=== PATIENT | female | born 2000 | race American Indian/Alaskan Native ===

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

== ENCOUNTER 2019-03-25 21:40 | Emergency (ER) | payer MEDICAID ==
[2019-03-26 00:45] LABS: Basophils % (Auto) 0.4 % (0.0-1.8); Eosinophils # (Auto) 0.2 K/mm3 (0.0-0.4); Eosinophils % (Auto) 2.7 % (0.0-4.3); Hematocrit 40.5 % (30.3-42.9); Hemoglobin 13.3 gm/dl (10.1-14.3); Lymphocytes # (Auto) 2.1 K/mm3 (1.2-5.4); Lymphocytes % (Auto) 34.2 % (13.4-35.0); Mean Corpuscular HGB Conc 33 % (30-34); Mean Corpuscular Volume 88 fl (79-97); Monocytes # (Auto) 0.5 K/mm3 (0.0-0.8); Monocytes % (Auto) 7.6 % (0.0-7.3); Platelet Count 198 K/mm3 (140-440); Red Blood Count 4.61 M/mm3 (3.65-5.03); Red Cell Distribution Width 12.7 % (13.2-15.2)
[2019-03-26 01:02] LABS: Alanine Aminotransferase 9 units/L (7-56); Albumin 4.7 g/dL (3.9-5); BUN/Creatinine Ratio 12; Blood Urea Nitrogen 7 mg/dL (7-17); Calcium 9.8 mg/dL (8.4-10.2); Hemolysis Index 18
--- NOTE | 2019-03-26 01:50 | Emergency Department Report ---
ED Female HPI - General Chief complaint: Abdominal Pain Stated complaint: VAGINAL BLEEDING Time Seen by Provider: 03/26/19 01:45 Source: patient Mode of arrival: Ambulatory Limitations: No Limitations - History of Present Illness Initial comments: Patient is a 18 Emergency female who presents for abdominal pain vaginal bleeding is 8 weeks patient is A0, states vaginal bleeding and cramping x 3 days , LMP: 01/29/2019 , there is no n/v no fever or or chills, vaginal bleeding is light but consistent for last 3 days. MD Complaint: vaginal bleeding Onset/Timin -: days(s) Severity: moderate Severity scale (0 -10): 3 Quality: cramping Consistency: constant Improves with: none Worsens with: none Are you Now?: Yes Last Menstrual Period: 01/29/19 EDC: 11/05/19 Associated Symptoms: vaginal bleeding - Related Data Sexually active: Yes : 1 Para: 0 A: 0 Previous Rx's Medication Instructions Recorded Last Taken Type Acetaminophen [Acetaminophen TAB] 650 mg PO Q6HR PRN #30 tablet 03/26/19 Unknown Rx Ondansetron [Zofran Odt] 4 mg PO Q8HR #20 tab.rapdis 03/26/19 Unknown Rx cephALEXin [Keflex] 500 mg PO Q12HR 10 Days #20 cap 03/26/19 Unknown Rx Allergies Allergy/AdvReac Type Severity Reaction Status Date / Time No Known Allergies Allergy Verified 11/19/16 16:41 ED Review of Systems ROS: Stated complaint: VAGINAL BLEEDING Other details as noted in HPI Constitutional: denies: chills, fever Eyes: denies: eye pain, eye discharge, vision change ENT: denies: ear pain, throat pain Respiratory: denies: cough, shortness of breath, wheezing Cardiovascular: denies: chest pain, palpitations Endocrine: no symptoms reported Gastrointestinal: abdominal pain. denies: nausea, vomiting, diarrhea, constipation, hematemesis, melena, other Genitourinary: denies: urgency, dysuria, discharge Musculoskeletal: denies: back pain, joint swelling, arthralgia Skin: denies: rash, lesions Neurological: denies: headache, weakness, paresthesias Psychiatric: denies: anxiety, depression Hematological/Lymphatic: denies: easy bleeding, easy bruising ED Past Medical Hx - Past Medical History Previous Medical History?: Yes Hx Psychiatric Treatment: Yes (anxiety attacks, depression) Hx Asthma: Yes - Surgical History Past Surgical History?: No - Social History Smoking Status: Never Smoker - Medications Home Medications: Home Medications Medication Instructions Recorded Confirmed Last Taken Type Acetaminophen [Acetaminophen TAB] 650 mg PO Q6HR PRN #30 tablet 03/26/19 Unknown Rx Ondansetron [Zofran Odt] 4 mg PO Q8HR #20 tab.rapdis 03/26/19 Unknown Rx cephALEXin [Keflex] 500 mg PO Q12HR 10 Days #20 cap 03/26/19 Unknown Rx ED Physical Exam - General Limitations: No Limitations General appearance: alert, in no apparent distress - Head Head exam: Present: atraumatic, normocephalic - Eye Eye exam: Present: normal appearance, PERRL, EOMI Pupils: Present: normal accommodation - ENT ENT exam: Present: mucous membranes moist - Neck Neck exam: Present: normal inspection - Respiratory Respiratory exam: Present: normal lung sounds bilaterally. Absent: respiratory distress - Cardiovascular Cardiovascular Exam: Present: regular rate, normal rhythm, normal heart sounds. Absent: systolic murmur, diastolic murmur, rubs, gallop - GI/Abdominal GI/Abdominal exam: Present: soft, tenderness (superopubic ), normal bowel sounds. Absent: distended, guarding, rebound, rigid, bruit, hernia - Rectal Rectal exam: Present: deferred - Extremities Exam Extremities exam: Present: normal inspection - Back Exam Back exam: Present: normal inspection, full ROM. Absent: tenderness, CVA tenderness (R), CVA tenderness (L), muscle spasm, paraspinal tenderness, vertebral tenderness, rash noted - Neurological Exam Neurological exam: Present: alert, oriented X3 - Psychiatric Psychiatric exam: Present: normal affect, normal mood - Skin Skin exam: Present: warm, dry, intact, normal color. Absent: rash ED Course Vital Signs 03/25/19 03/26/19 21:44 00:01 Temperature 98.6 F 98.6 F Pulse Rate 99 H 108 H Respiratory 18 18 Rate Blood Pressure 116/92 116/92 O2 Sat by Pulse 98 99 Oximetry ED Medical Decision Making - Lab Data Result diagrams: 03/26/19 00:16 03/26/19 00:16 Labs 03/26/19 03/26/19 03/26/19 00:16 00:16 00:16 WBC 6.3 RBC 4.61 Hgb 13.3 Hct 40.5 MCV 88 MCH 29 MCHC 33 RDW 12.7 L Plt Count 198 Lymph % (Auto) 34.2 [place] % (Auto) 7.6 H Eos % (Auto) 2.7 Baso % (Auto) 0.4 Lymph # 2.1 [place] # 0.5 Eos # 0.2 Baso # 0.0 Seg Neutrophils % 55.1 Seg Neutrophils # 3.4 Sodium Potassium Chloride Carbon Dioxide Anion Gap BUN Creatinine Estimated GFR BUN/Creatinine Ratio Glucose Calcium Total Bilirubin AST ALT Alkaline Phosphatase Total Protein Albumin Albumin/Globulin Ratio Lipase HCG, Quant 9586 H Urine Color Urine Turbidity Urine pH Ur Specific [place] Urine Protein Urine Glucose (UA) Urine Ketones Urine Blood Urine Nitrite Urine Bilirubin Urine Urobilinogen Ur Leukocyte Esterase Urine WBC (Auto) Urine RBC (Auto) U Epithel Cells (Auto) Urine Bacteria (Auto) Calcium Oxalate Crystal Urine Mucus Blood Type O POSITIVE 03/26/19 03/26/19 00:16 02:30 WBC RBC Hgb Hct MCV MCH MCHC RDW Plt Count Lymph % (Auto) [place] % (Auto) Eos % (Auto) Baso % (Auto) Lymph # [place] # Eos # Baso # Seg Neutrophils % Seg Neutrophils # Sodium 138 Potassium 3.5 L Chloride 103.6 Carbon Dioxide 20 L Anion Gap 18 BUN 7 Creatinine 0.6 L Estimated GFR > 60 BUN/Creatinine Ratio 12 Glucose 108 H Calcium 9.8 Total Bilirubin 0.20 AST 15 ALT 9 Alkaline Phosphatase 62 Total Protein 7.3 Albumin 4.7 Albumin/Globulin Ratio 1.8 Lipase 25 HCG, Quant Urine Color Yellow Urine Turbidity Slightly-cloudy Urine pH 5.0 Ur Specific [place] 1.024 Urine Protein 100 mg/dl Urine Glucose (UA) Neg Urine Ketones Neg Urine Blood Lg Urine Nitrite Neg Urine Bilirubin Neg Urine Urobilinogen < 2.0 Ur Leukocyte Esterase Sm Urine WBC (Auto) 11.0 H Urine RBC (Auto) 12.0 U Epithel Cells (Auto) 9.0 Urine Bacteria (Auto) 1+ Calcium Oxalate Crystal 1+ Urine Mucus 3+ Blood Type - Radiology Data Radiology results: report reviewed, image reviewed Patient: LESLIE PETTIT MR#: [id number] : 2000 Acct:[id number] Age/Sex: 18 / F ADM Date: 03/25/19 Loc: ED Attending Dr: Ordering Physician: VICENTE PEARSON MD Date of Service: 03/26/19 Procedure(s): US OB <= 14 weeks fetus Accession Number(s): [id number] cc: VICENTE PEARSON MD PROCEDURE: US OB <= 14 WEEKS FETUS TECHNIQUE: Real-time transabdominal and transvaginal sonography of the uterus, placenta, amniotic fluid, adnexa, and fetus was performed with image documentation. Measurements were obtained to determine age/size. M-mode Doppler was used to document heartbeat. ADDITIONAL GESTATION: None. HISTORY: vaginal bleeding 8 wks COMPARISONS: None . FINDINGS: Uterus size is 6.5 x 3.7 x 5 cm. Within the uterus there is a gestational sac with a measurement of approximately 10 mm. A yolk sac is identified on this study. A pole is not seen. The gestational age is approximately 5 weeks. Both ovaries have a normal size. There is a small 17 mm cyst on the left ovary. No fluid in the lower pelvis. The findings are most consistent with an early intrauterine . failure is not excluded on the basis of this single study. Follow-up evaluation may be appropriate with a repeat ultrasound in approximately 14 days. IMPRESSION: Gestational sac is identified within the uterus. No pole is identified at this time. The gestational age is approximately 5 weeks. Recheck study in approximately 14 days may be of benefit. This document is electronically signed by Capo Murdock DO., March 26 2019 02:47:36 AM ET Transcribed By: [facility] Dictated By: CAPO MURDOCK MD Electronically Authenticated By: CAPO MURDOCK MD Signed Date/Time: 03/26/19 0249 DD/ 0235 TD/TT: 03/26/19 0236 Critical care attestation.: If time is entered above; I have spent that time in minutes in the direct care of this critically ill patient, excluding procedure time. ED Disposition Clinical Impression: Genitourinary tract infection during in first trimester, Threatened miscarriage Abdominal pain during Qualifiers: Trimester: first trimester Qualified Code(s): O26.891 - Other specified related conditions, first trimester; R10.9 - Unspecified abdominal pain Disposition: DC-01 TO HOME OR SELFCARE Is pt being admited?: No Does the pt Need Aspirin: No Condition: Stable Instructions: Threatened Miscarriage (ED), Urinary Tract Infection in Women (ED) Prescriptions: Acetaminophen [Acetaminophen TAB] 650 mg PO Q6HR PRN #30 tablet PRN Reason: Pain cephALEXin [Keflex] 500 mg PO Q12HR 10 Days #20 cap Ondansetron [Zofran Odt] 4 mg PO Q8HR #20 tab.rapdis Forms: Work/School Release Form(ED) Time of Disposition: 03:40
--- NOTE | 2019-03-26 02:49 | Ultrasound Report ---
PROCEDURE: US OB <= 14 WEEKS FETUS TECHNIQUE: Real-time transabdominal and transvaginal sonography of the uterus, placenta, amniotic fl uid, adnexa, and fetus was performed with image documentation. Measurements were obtained to determin e age/size. M-mode Doppler was used to document heartbeat. ADDITIONAL GESTATION: None. HISTORY: vaginal bleeding 8 wks COMPARISONS: None . FINDINGS: Uterus size is 6.5 x 3.7 x 5 cm. Within the uterus there is a gestational sac with a measurement of a pproximately 10 mm. A yolk sac is identified on this study. A pole is not seen. The gestational age is approximately 5 weeks. Both ovaries have a normal size. There is a small 17 mm cyst on the left ovary. No fluid in the lower pelvis. The findings are most consistent with an early intrauterine . failure is not exclu ded on the basis of this single study. Follow-up evaluation may be appropriate with a repeat ultrasou nd in approximately 14 days. IMPRESSION: Gestational sac is identified within the uterus. No pole is identified at this time . The gestational age is approximately 5 weeks. Recheck study in approximately 14 days may be of bene fit. This document is electronically signed by Lindsay Murdock DO., March 26 2019 02:47:36 AM ET
--- NOTE | 2019-03-26 02:59 | Ultrasound Report ---
PROCEDURE: US OB TRANSVAGINAL TECHNIQUE: Real-time transabdominal and transvaginal sonography of the uterus, placenta, amniotic fl uid, adnexa, and fetus was performed with image documentation. Measurements were obtained to determin e age/size. M-mode Doppler was used to document heartbeat. ADDITIONAL GESTATION: None. HISTORY: vaginal bleeding 8 wks COMPARISONS: None . FINDINGS: Uterus size is 6.5 x 3.7 x 5 cm. Within the uterus there is a gestational sac with a measurement of a pproximately 10 mm. A yolk sac is identified on this study. A pole is not seen. The gestational age is approximately 5 weeks. Both ovaries have a normal size. There is a small 17 mm cyst on the left ovary. No fluid in the lower pelvis. The findings are most consistent with an early intrauterine . failure is not exclu ded on the basis of this single study. Follow-up evaluation may be appropriate with a repeat ultrasou nd in approximately 14 days. IMPRESSION: Gestational sac is identified within the uterus. No pole is identified at this time . The gestational age is approximately 5 weeks. Recheck study in approximately 14 days may be of bene fit. This document is electronically signed by Lindsay Murdock DO., March 26 2019 02:57:13 AM ET
[2019-03-26 03:14] LABS: Bacteria,Urine 1+ /HPF (Negative); Bilirubin,Urine NEG (Negative); Blood,Urine LG (Negative); Calcium Oxalate Crystals,Urine 1+; Color,Urine Yellow (Yellow); Mucus,Urine 3+ /HPF; Urobilinogen,Urine < 2.0 mg/dL (<2.0)
[2019-03-26 03:57] VITALS: BP 96/61
== END 2019-03-26 03:55 | disposition home or self-care (01) ==
LOC: ED 21:40
DX: O23.41 Unspecified infection of urinary tract in pregnancy, first trimester (principal); O20.0 Threatened abortion; O99.341 Other mental disorders complicating pregnancy, first trimester; F32.9 Major depressive disorder, single episode, unspecified; F41.9 Anxiety disorder, unspecified; O99.511 Diseases of the respiratory system complicating pregnancy, first trimester; J45.909 Unspecified asthma, uncomplicated; Z79.899 Other long term (current) drug therapy; Z3A.01 Less than 8 weeks gestation of pregnancy
CPT/HCPCS: 36415; 76801; 76817; 80053; 81001; 83690; 84702; 85025; 86900; 86901; 87086; 99284

== ENCOUNTER 2019-03-26 22:36 | Emergency (ER) | payer MEDICAID ==
[2019-03-26] MEDS ORDERED: ZOFRAN ODT ONE (23:48)
[2019-03-26] MEDS ORDERED: ZOFRAN ODT PO ONE (23:50)
[2019-03-27 00:18] LABS: Basophils # (Auto) 0.1 K/mm3 (0.0-0.1); Basophils % (Auto) 1.2 % (0.0-1.8); Eosinophils # (Auto) 0.2 K/mm3 (0.0-0.4); Eosinophils % (Auto) 1.8 % (0.0-4.3); Hemoglobin 13.4 gm/dl (10.1-14.3); Lymphocytes # (Auto) 1.8 K/mm3 (1.2-5.4); Lymphocytes % (Auto) 20.4 % (13.4-35.0); Mean Corpuscular HGB Conc 34 % (30-34); Mean Corpuscular Volume 87 fl (79-97); Monocytes # (Auto) 0.5 K/mm3 (0.0-0.8); Monocytes % (Auto) 6.3 % (0.0-7.3); Platelet Count 222 K/mm3 (140-440); Red Cell Distribution Width 12.7 % (13.2-15.2)
[2019-03-27 00:44] LABS: Bilirubin,Urine NEG (Negative); Blood,Urine LG (Negative); Color,Urine Yellow (Yellow); Mucus,Urine FEW /HPF; Urobilinogen,Urine < 2.0 mg/dL (<2.0)
[2019-03-27] MEDS ORDERED: BENADRYL IV ONE (05:29)
[2019-03-27] MEDS ORDERED: NACL 0.9% 1000 ML 1,000 ML IV ONE (05:29)
[2019-03-27] MEDS ORDERED: BENTYL IM ONE (05:29)
[2019-03-27] MEDS ORDERED: REGLAN IV ONE (05:29)
--- NOTE | 2019-03-27 07:42 | Emergency Department Report ---
ED Dysuria HPI - HPI Chief Complaint: Vaginal Bleeding Stated Complaint: 6WKS /BLEEDING/ABD PAIN Time Seen by Provider: 03/27/19 07:09 Duration: 3 Days Severity: Mild Symptoms: Dysuria: No, Frequency: No, Suprapubic Pain: No, Flank Pain: No, Fever: No, Hematuria: No, Abdominal Pain: No, Previous UTI's: No Other History: Here yesterday for same. preg with bleeding. told to come back if bleeding got worse. VSS. NAD. G1 LMP 4-29 ED Review of Systems ROS: Stated complaint: 6WKS /BLEEDING/ABD PAIN Other details as noted in HPI Comment: All other systems reviewed and negative ED Past Medical Hx - Past Medical History Previous Medical History?: Yes Hx Psychiatric Treatment: Yes (anxiety attacks, depression) Hx Asthma: Yes - Surgical History Past Surgical History?: No - Social History Smoking Status: Never Smoker Substance Use Type: Marijuana - Medications Home Medications: Home Medications Medication Instructions Recorded Confirmed Last Taken Type Acetaminophen [Acetaminophen TAB] 650 mg PO Q6HR PRN #30 tablet 03/26/19 Unknown Rx Ondansetron [Zofran Odt] 4 mg PO Q8HR #20 tab.rapdis 03/26/19 Unknown Rx cephALEXin [Keflex] 500 mg PO Q12HR 10 Days #20 cap 03/26/19 Unknown Rx Ibuprofen [Motrin] 800 mg PO Q8HR PRN #25 tablet 03/27/19 Unknown Rx Dysuria Exam - Exam General: Vital signs noted. No distress. Alert and acting appropriately. Exam: Yes Moist Mucous Membranes, No CVA Tenderness, No Abdominal Tenderness, No Rigidity or Guarding Labs: Lab Results 03/26/19 03/26/19 03/26/19 Range/Units 23:54 23:54 23:54 WBC 8.6 (4.5-11.0) K/mm3 RBC 4.60 (3.65-5.03) M/mm3 Hgb 13.4 (10.1-14.3) gm/dl Hct 40.0 (30.3-42.9) % MCV 87 (79-97) fl MCH 29 (28-32) pg MCHC 34 (30-34) % RDW 12.7 L (13.2-15.2) % Plt Count 222 (140-440) K/mm3 Lymph % (Auto) 20.4 (13.4-35.0) % [place] % (Auto) 6.3 (0.0-7.3) % Eos % (Auto) 1.8 (0.0-4.3) % Baso % (Auto) 1.2 (0.0-1.8) % Lymph # 1.8 (1.2-5.4) K/mm3 [place] # 0.5 (0.0-0.8) K/mm3 Eos # 0.2 (0.0-0.4) K/mm3 Baso # 0.1 (0.0-0.1) K/mm3 Seg Neutrophils % 70.3 H (40.0-70.0) % Seg Neutrophils # 6.1 (1.8-7.7) K/mm3 HCG, Quant 9168 H (0-4) mIU/mL Urine Color (Yellow) Urine Turbidity (Clear) Urine pH (5.0-7.0) Ur Specific [place] (1.003-1.030) Urine Protein (Negative) mg/dL Urine Glucose (UA) (Negative) mg/dL Urine Ketones (Negative) mg/dL Urine Blood (Negative) Urine Nitrite (Negative) Urine Bilirubin (Negative) Urine Urobilinogen (<2.0) mg/dL Ur Leukocyte Esterase (Negative) Urine WBC (Auto) (0.0-6.0) /HPF Urine RBC (Auto) (0.0-6.0) /HPF U Epithel Cells (Auto) (0-13.0) /HPF Urine WBC Clumps /HPF Urine Mucus /HPF Urine Yeast (Budding) /HPF Blood Type O POSITIVE 03/27/19 Range/Units 00:12 WBC (4.5-11.0) K/mm3 RBC (3.65-5.03) M/mm3 Hgb (10.1-14.3) gm/dl Hct (30.3-42.9) % MCV (79-97) fl MCH (28-32) pg MCHC (30-34) % RDW (13.2-15.2) % Plt Count (140-440) K/mm3 Lymph % (Auto) (13.4-35.0) % [place] % (Auto) (0.0-7.3) % Eos % (Auto) (0.0-4.3) % Baso % (Auto) (0.0-1.8) % Lymph # (1.2-5.4) K/mm3 [place] # (0.0-0.8) K/mm3 Eos # (0.0-0.4) K/mm3 Baso # (0.0-0.1) K/mm3 Seg Neutrophils % (40.0-70.0) % Seg Neutrophils # (1.8-7.7) K/mm3 HCG, Quant (0-4) mIU/mL Urine Color Yellow (Yellow) Urine Turbidity Cloudy (Clear) Urine pH 7.0 (5.0-7.0) Ur Specific [place] 1.018 (1.003-1.030) Urine Protein 30 mg/dl (Negative) mg/dL Urine Glucose (UA) Neg (Negative) mg/dL Urine Ketones 20 (Negative) mg/dL Urine Blood Lg (Negative) Urine Nitrite Neg (Negative) Urine Bilirubin Neg (Negative) Urine Urobilinogen < 2.0 (<2.0) mg/dL Ur Leukocyte Esterase Neg (Negative) Urine WBC (Auto) 6.0 (0.0-6.0) /HPF Urine RBC (Auto) 78.0 (0.0-6.0) /HPF U Epithel Cells (Auto) 1.0 (0-13.0) /HPF Urine WBC Clumps 2+ /HPF Urine Mucus Few /HPF Urine Yeast (Budding) 3+ /HPF Blood Type ED Course Vital Signs 03/26/19 22:38 Temperature 98.4 F Pulse Rate 105 H Respiratory 18 Rate Blood Pressure 131/83 O2 Sat by Pulse 100 Oximetry ED Medical Decision Making - Lab Data Result diagrams: 03/26/19 23:54 - Radiology Data Radiology results: report reviewed, image reviewed - Medical Decision Making Lab Results 03/26/19 03/26/19 03/26/19 Range/Units 23:54 23:54 23:54 WBC 8.6 (4.5-11.0) K/mm3 RBC 4.60 (3.65-5.03) M/mm3 Hgb 13.4 (10.1-14.3) gm/dl Hct 40.0 (30.3-42.9) % MCV 87 (79-97) fl MCH 29 (28-32) pg MCHC 34 (30-34) % RDW 12.7 L (13.2-15.2) % Plt Count 222 (140-440) K/mm3 Lymph % (Auto) 20.4 (13.4-35.0) % [place] % (Auto) 6.3 (0.0-7.3) % Eos % (Auto) 1.8 (0.0-4.3) % Baso % (Auto) 1.2 (0.0-1.8) % Lymph # 1.8 (1.2-5.4) K/mm3 [place] # 0.5 (0.0-0.8) K/mm3 Eos # 0.2 (0.0-0.4) K/mm3 Baso # 0.1 (0.0-0.1) K/mm3 Seg Neutrophils % 70.3 H (40.0-70.0) % Seg Neutrophils # 6.1 (1.8-7.7) K/mm3 HCG, Quant 9168 H (0-4) mIU/mL Urine Color (Yellow) Urine Turbidity (Clear) Urine pH (5.0-7.0) Ur Specific [place] (1.003-1.030) Urine Protein (Negative) mg/dL Urine Glucose (UA) (Negative) mg/dL Urine Ketones (Negative) mg/dL Urine Blood (Negative) Urine Nitrite (Negative) Urine Bilirubin (Negative) Urine Urobilinogen (<2.0) mg/dL Ur Leukocyte Esterase (Negative) Urine WBC (Auto) (0.0-6.0) /HPF Urine RBC (Auto) (0.0-6.0) /HPF U Epithel Cells (Auto) (0-13.0) /HPF Urine WBC Clumps /HPF Urine Mucus /HPF Urine Yeast (Budding) /HPF Blood Type O POSITIVE 03/27/19 03/27/19 Range/Units 00:12 06:33 WBC (4.5-11.0) K/mm3 RBC (3.65-5.03) M/mm3 Hgb (10.1-14.3) gm/dl Hct (30.3-42.9) % MCV (79-97) fl MCH (28-32) pg MCHC (30-34) % RDW (13.2-15.2) % Plt Count (140-440) K/mm3 Lymph % (Auto) (13.4-35.0) % [place] % (Auto) (0.0-7.3) % Eos % (Auto) (0.0-4.3) % Baso % (Auto) (0.0-1.8) % Lymph # (1.2-5.4) K/mm3 [place] # (0.0-0.8) K/mm3 Eos # (0.0-0.4) K/mm3 Baso # (0.0-0.1) K/mm3 Seg Neutrophils % (40.0-70.0) % Seg Neutrophils # (1.8-7.7) K/mm3 HCG, Quant 5752 H (0-4) mIU/mL Urine Color Yellow (Yellow) Urine Turbidity Cloudy (Clear) Urine pH 7.0 (5.0-7.0) Ur Specific [place] 1.018 (1.003-1.030) Urine Protein 30 mg/dl (Negative) mg/dL Urine Glucose (UA) Neg (Negative) mg/dL Urine Ketones 20 (Negative) mg/dL Urine Blood Lg (Negative) Urine Nitrite Neg (Negative) Urine Bilirubin Neg (Negative) Urine Urobilinogen < 2.0 (<2.0) mg/dL Ur Leukocyte Esterase Neg (Negative) Urine WBC (Auto) 6.0 (0.0-6.0) /HPF Urine RBC (Auto) 78.0 (0.0-6.0) /HPF U Epithel Cells (Auto) 1.0 (0-13.0) /HPF Urine WBC Clumps 2+ /HPF Urine Mucus Few /HPF Urine Yeast (Budding) 3+ /HPF Blood Type Vital Signs 03/26/19 22:38 Temperature 98.4 F Pulse Rate 105 H Respiratory 18 Rate Blood Pressure 131/83 O2 Sat by Pulse 100 Oximetry labs noted as ordered in triage hcg trending down us noted o pos medicated for pain dc home with education and dc plan of care. referral to obgyn. Critical care attestation.: If time is entered above; I have spent that time in minutes in the direct care of this critically ill patient, excluding procedure time. ED Disposition Clinical Impression: Spontaneous Disposition: DC-01 TO HOME OR SELFCARE Is pt being admited?: No Does the pt Need Aspirin: No Condition: Stable Instructions: Spontaneous Miscarriage (ED) Additional Instructions: DIET TOLERATED MEDS ORDERED TODAY IN ER FOLLOW INSTRUCTIONS ON THE BOTTLE FOLLOW UP PCP WITHIN 48 HOURS TO ENSURE YOU ARE GETTING BETTER ACTIVITY TOLERATED MOTRIN OR TYLENOL FOR PAIN OR FEVER RETURN TO THE ER FOR WORSENING SYMPTOMS NOT RELIEVED BY YOUR MEDICATIONS. FOLLOW UP WITH OBGYN REFERRAL BELOW Prescriptions: Ibuprofen [Motrin] 800 mg PO Q8HR PRN #25 tablet PRN Reason: Pain , Severe (7-10) Referrals: ALBA PEREZ MD [Staff Physician] - 3-5 Days Time of Disposition: 09:04
--- NOTE | 2019-03-27 08:56 | Ultrasound Report ---
ULTRASOUND OB LESS THAN 14 WEEKS FETUS ULTRASOUND OB TRANSVAGINAL HISTORY: Abdominal pain, vaginal bleeding. TECHNIQUE: Transabdominal and transvaginal ultrasound images. FINDINGS: Compared to the exam performed 03/26/19. No intrauterine is identified on today's examination. The endometrium is slightly heterogeneous containing trace fluid and measures 9.1 mm in thickness. The uterus is anteverted and measures 7.5 x 3.8 x 4.9 cm. No uterine fibroid disease detected. The right ovary is unremarkable measuring 2.5 x 1.7 x 1.6 cm. The left ovary measures 2.6 x 2.1 x 1.9 cm and contains a 1.5 cm simple appearing cyst. No pelvic fluid collection. IMPRESSION: No intrauterine is identified on today's exam consistent with spontaneous . The endometrium is slightly complex but measures 9.1 mm. Left ovarian cyst.
[2019-03-27] MEDS ORDERED: ZOFRAN ODT PO ONE ×2 (09:05→10:21)
[2019-03-27] MEDS ORDERED: NORCO 5/325 PO ONE (09:05)
[2019-03-27 09:30] VITALS: BP 111/71
== END 2019-03-27 10:32 | disposition home or self-care (01) ==
LOC: ED 22:36
DX: O03.9 Complete or unspecified spontaneous abortion without complication (principal); O99.341 Other mental disorders complicating pregnancy, first trimester; O99.511 Diseases of the respiratory system complicating pregnancy, first trimester; F12.10 Cannabis abuse, uncomplicated; F41.8 Other specified anxiety disorders; Z3A.01 Less than 8 weeks gestation of pregnancy
CPT/HCPCS: 36415; 76801; 76817; 81001; 84702; 85025; 86900; 86901; 96372; 96374; 96375; 99284; J0500; J1200; J2765; J7030; Q0162

== ENCOUNTER 2019-10-15 08:47 | Emergency (ER) | payer SELFPAY ==
[2019-10-15 09:15] VITALS: BP 118/75
[2019-10-15] MEDS ORDERED: HYDROcodone/ACETAMINOPHEN 10-325MG TAB PO ONE (10:02)
--- NOTE | 2019-10-15 10:04 | XRay Report ---
RIGHT HAND, 4 VIEWS INDICATION / CLINICAL INFORMATION: HAND INJURY. Patient punched a wall COMPARISON: None available. FINDINGS: There is a minimally displaced fracture through the base/proximal portion of the fifth metacarpal. Th is does appear to be intra-articular. No additional fractures are identified. IMPRESSION: Mildly displaced intra-articular fracture involving the proximal portion of the fifth met acarpal Signer Name: Breann Castillo MD Signed: 10/15/2019 10:00 AM Workstation Name: [id number]
--- NOTE | 2019-10-15 10:05 | Emergency Department Report ---
ED Upper Extremity Inj HPI - General Chief Complaint: Extremity Injury, Upper Stated Complaint: HAND INJURY Time Seen by Provider: 10/15/19 09:55 Source: patient Mode of arrival: Ambulatory Limitations: No Limitations - History of Present Illness Initial Comments: This is a 19-year-old female nontoxic, well nourished in appearance, no acute signs of distress presents to the ED with c/o of right hand pain 1 day. Patient stated that she punched the wall yesterday. Patient denies any other trauma. Patient denies any numbness, tingling, fever, chills, nausea, vomiting, chest pain, shortness of breath, headache, stiff neck. Patient denies any joint swelling or joint redness. Patient has some decreased range of motion due to pain. Patient denies any allergies or significant past medical history. MD Complaint: Injury to:: right, hand -: days(s) (1) Other Extremity Injury: Hand: Right Other Injuries: none Severity scale (0 -10): 8 Improves With: immobilization Worsens With: movement of extremity Context: direct blow Associated Symptoms: denies other symptoms. denies: weakness, numbness, neck pain, suspects foreign body, nausea/vomiting, heard/felt popping sensat - Related Data Previous Rx's Medication Instructions Recorded Last Taken Type Acetaminophen [Acetaminophen TAB] 650 mg PO Q6HR PRN #30 tablet 03/26/19 Unknown Rx Ondansetron [Zofran Odt] 4 mg PO Q8HR #20 tab.rapdis 03/26/19 Unknown Rx cephALEXin [Keflex] 500 mg PO Q12HR 10 Days #20 cap 03/26/19 Unknown Rx Ibuprofen [Motrin] 800 mg PO Q8HR PRN #25 tablet 03/27/19 Unknown Rx Acetaminophen/Codeine [Tylenol 1 tab PO Q6H PRN #12 tab 10/15/19 Unknown Rx /Codeine # 3 tab] Allergies Allergy/AdvReac Type Severity Reaction Status Date / Time No Known Allergies Allergy Verified 11/19/16 16:41 ED Review of Systems ROS: Stated complaint: HAND INJURY Other details as noted in HPI Constitutional: denies: chills, fever Eyes: denies: eye pain, eye discharge, vision change ENT: denies: ear pain, throat pain Respiratory: denies: cough, shortness of breath, wheezing Cardiovascular: denies: chest pain, palpitations Endocrine: no symptoms reported Gastrointestinal: denies: abdominal pain, nausea, diarrhea Genitourinary: denies: urgency, dysuria, discharge Musculoskeletal: denies: back pain, joint swelling, arthralgia Skin: denies: rash, lesions Neurological: denies: headache, weakness, paresthesias Psychiatric: denies: anxiety, depression Hematological/Lymphatic: denies: easy bleeding, easy bruising ED Past Medical Hx - Past Medical History Previous Medical History?: Yes Hx Psychiatric Treatment: Yes (anxiety attacks, depression) Hx Asthma: Yes - Surgical History Past Surgical History?: No - Social History Smoking Status: Never Smoker Substance Use Type: Marijuana - Medications Home Medications: Home Medications Medication Instructions Recorded Confirmed Last Taken Type Acetaminophen [Acetaminophen TAB] 650 mg PO Q6HR PRN #30 tablet 03/26/19 Unknown Rx Ondansetron [Zofran Odt] 4 mg PO Q8HR #20 tab.rapdis 03/26/19 Unknown Rx cephALEXin [Keflex] 500 mg PO Q12HR 10 Days #20 cap 03/26/19 Unknown Rx Ibuprofen [Motrin] 800 mg PO Q8HR PRN #25 tablet 03/27/19 Unknown Rx Acetaminophen/Codeine [Tylenol 1 tab PO Q6H PRN #12 tab 10/15/19 Unknown Rx /Codeine # 3 tab] ED Physical Exam - General Limitations: No Limitations General appearance: alert, in no apparent distress - Head Head exam: Present: atraumatic, normocephalic - Neck Neck exam: Present: normal inspection, full ROM. Absent: tenderness, meningismus, lymphadenopathy - Extremities Exam Extremities exam: Present: normal inspection, full ROM, tenderness, normal capillary refill. Absent: joint swelling - Expanded Upper Extremity Exam Right General: Present: normal inspection Shoulder Exam: Present: normal inspection, full ROM. Absent: tenderness, swelling Upper Arm exam: Present: normal inspection, full ROM. Absent: tenderness, swelling Elbow exam: Present: normal inspection, full ROM. Absent: tenderness, swelling Forearm Wrist exam: Present: normal inspection, full ROM. Absent: tenderness, swelling Hand Wrist exam: Present: normal inspection, full ROM, tenderness, swelling, ecchymosis. Absent: abrasion, laceration, deformity, crepidus, dislocation, erythema, amputation, nail avulsion, subungual hematoma Vascular: Present: vascular compromise, normal capillary refill - Back Exam Back exam: Present: normal inspection, full ROM - Neurological Exam Neurological exam: Present: alert, oriented X3, normal gait - Psychiatric Psychiatric exam: Present: normal affect, normal mood - Skin Skin exam: Present: warm, dry, intact, normal color. Absent: rash ED Course Vital Signs 10/15/19 09:12 Temperature 98.2 F Pulse Rate 76 Respiratory 16 Rate Blood Pressure 118/75 [Left] O2 Sat by Pulse 99 Oximetry - Reevaluation(s) Reevaluation #1: 10/15/19 10:04 Patient is speaking in full sentences with no signs of distress noted. ED Medical Decision Making - Medical Decision Making This is a 19-year-old female that presents with right boxer splint. Patient is stable and was examined by me. I referred patient to an orthopedic doctor for further evaluation for possible MRI. X-ray has been obtained and dictated by the radiologist. Patient is notified of the x-ray report with noted by the patient. Patient does have normal gait with no tenderness and no joint swelling. No ecchymosis. no joint redness or swelling. Not warm to touch. No signs of cellulites present. Patient received a boxer ulnar gutter splint and sling. Post splint assessment: neurovasular intact; normal cap refill <2 second; normal sensation; denies decreaed sensation; normal ROM of digits. Patient was instructed to RICE therapy. Patient received [place] for pain and stated that family member will drive patient home after discharge due to possible drowsiness. Patient is discharged with Motrin. At time of discharge, the patient does not seem toxic or ill in appearance. No acute signs of distress noted. Patient agrees to discharge treatment plan of care. No further questions noted by the patient. Critical care attestation.: If time is entered above; I have spent that time in minutes in the direct care of this critically ill patient, excluding procedure time. ED Disposition Clinical Impression: Right hand fracture Qualifiers: Encounter type: initial encounter Fracture type: closed Qualified Code(s): S62.91XA - Unspecified fracture of right wrist and hand, initial encounter for closed fracture Disposition: - TO HOME OR SELFCARE Is pt being admited?: No Does the pt Need Aspirin: No Condition: Stable Instructions: Hand Fracture (ED), RICE Therapy (ED), Splint Care (ED), Acetaminophen/Codeine (By mouth) Additional Instructions: Follow-up with a orthopedic doctor in 3-5 days or if symptoms worsen and continue return to emergency room as soon as possible. Do not operate any machinery while taking Tylenol with codeine as this may cause drowsiness. Prescriptions: Acetaminophen/Codeine [Tylenol /Codeine # 3 tab] 1 tab PO Q6H PRN #12 tab PRN Reason: Pain , Severe (7-10) Referrals: PRIMARY CAREMD [Primary Care Provider] - 3-5 Days VERÓNICA YEUNG MD [Staff Physician] - 3-5 Days [facility] [Outside] - 3-5 Days Forms: Work/School Release Form(ED)
== END 2019-10-15 12:03 | disposition home or self-care (01) ==
LOC: ED 08:47
DX: S62.91XA Unspecified fracture of right hand, initial encounter for closed fracture (principal); F32.9 Major depressive disorder, single episode, unspecified; F41.9 Anxiety disorder, unspecified; J45.909 Unspecified asthma, uncomplicated; F12.10 Cannabis abuse, uncomplicated; W22.01XA Walked into wall, initial encounter; Y93.89 Activity, other specified; Y92.89 Other specified places as the place of occurrence of the external cause; Y99.8 Other external cause status

== ENCOUNTER 2019-10-31 21:36 | Emergency (ER) | payer SELFPAY ==
[2019-10-31 22:10] VITALS: BP 128/83
[2019-11-01 00:07] LABS: Hematocrit 43.2 % (30.3-42.9); Hemoglobin 14.3 gm/dl (10.1-14.3); Mean Corpuscular HGB Conc 33 % (30-34); Mean Corpuscular Volume 85 fl (79-97); Platelet Count 269 K/mm3 (140-440); Red Blood Count 5.07 M/mm3 (3.65-5.03); Red Cell Distribution Width 12.6 % (13.2-15.2)
[2019-11-01 00:34] LABS: Alanine Aminotransferase 10 units/L (7-56); Albumin 5.4 g/dL (3.9-5); BUN/Creatinine Ratio 29; Blood Urea Nitrogen 20 mg/dL (7-17); Calcium 10.8 mg/dL (8.4-10.2); Hemolysis Index 4
[2019-11-01] MEDS ORDERED: SODIUM CHLORIDE 0.9% 1000 ML 1,000 ML IV ONE (01:20)
[2019-11-01] MEDS ORDERED: ONDANSETRON 4 MG/2 ML INJ IV ONE (01:20)
--- NOTE | 2019-11-01 01:55 | Emergency Department Report ---
ED N/V/D HPI - General Chief complaint: Nausea/Vomiting/Diarrhea Stated complaint: CHEST PAIN, VOMITTING Time Seen by Provider: 11/01/19 01:18 Source: patient Mode of arrival: Ambulatory Limitations: No Limitations - History of Present Illness Initial comments: Ms. Subramanian is a 19 y/o aaf with hx of anxiety, who presents for n/v and epigastric burning decribed as heart burn x 3 days. pt denies diarrhea, no fever, or chills. Symptoms are exacerbated by eating, symptoms are relived by rest and po liquids. Last N/V 4 hrs ago, last po intake was now, water. Abd cramping is rated at 2/10 managable at this time. MD complaint: nausea, vomiting Onset/Timin -: days(s) Description of Vomiting: food contents Description of Diarrhea: other (none) Associated Abdominal Pain: Yes (epigastric burning ) Location: epigastric Radiation: none Severity: moderate Pain Scale: 4 Quality: cramping, aching Consistency: intermittent Improves with: rest Worsens with: eating Associated Symptoms: chest pain (epigastric ), nausea/vomiting. denies: fever/chills, shortness of breath - Related Data Previous Rx's Medication Instructions Recorded Last Taken Type Acetaminophen [Acetaminophen TAB] 650 mg PO Q6HR PRN #30 tablet 03/26/19 Unknown Rx Ondansetron [Zofran Odt] 4 mg PO Q8HR #20 tab.rapdis 03/26/19 Unknown Rx cephALEXin [Keflex] 500 mg PO Q12HR 10 Days #20 cap 03/26/19 Unknown Rx Ibuprofen [Motrin] 800 mg PO Q8HR PRN #25 tablet 03/27/19 Unknown Rx Acetaminophen/Codeine [Tylenol 1 tab PO Q6H PRN #12 tab 10/15/19 Unknown Rx /Codeine # 3 tab] Ibuprofen [Motrin 600 MG tab] 600 mg PO Q8H PRN #30 tab 11/01/19 Unknown Rx Nitrofurantoin Sutter/M-Cryst 100 mg PO BID 7 Days #14 capsule 11/01/19 Unknown Rx [Macrobid CAP] Ondansetron [Zofran Odt] 4 mg PO Q8HR #12 tab.rapdis 11/01/19 Unknown Rx Allergies Allergy/AdvReac Type Severity Reaction Status Date / Time No Known Allergies Allergy Verified 11/19/16 16:41 ED Review of Systems ROS: Stated complaint: CHEST PAIN, VOMITTING Other details as noted in HPI Constitutional: denies: chills, fever Eyes: denies: eye pain, eye discharge, vision change ENT: denies: ear pain, throat pain Respiratory: denies: cough, shortness of breath, wheezing Cardiovascular: chest pain (epigastric ) Endocrine: no symptoms reported Gastrointestinal: abdominal pain (epigastric ), nausea, vomiting. denies: diarrhea, constipation, melena Genitourinary: denies: urgency, dysuria, discharge Musculoskeletal: denies: back pain, joint swelling, arthralgia Skin: denies: rash, lesions Neurological: denies: headache, weakness, paresthesias Psychiatric: denies: anxiety, depression Hematological/Lymphatic: denies: easy bleeding, easy bruising ED Past Medical Hx - Past Medical History Hx Psychiatric Treatment: Yes (anxiety attacks, depression) Hx Asthma: Yes - Surgical History Past Surgical History?: No - Social History Smoking Status: Never Smoker Substance Use Type: Marijuana - Medications Home Medications: Home Medications Medication Instructions Recorded Confirmed Last Taken Type Acetaminophen [Acetaminophen TAB] 650 mg PO Q6HR PRN #30 tablet 03/26/19 Unknown Rx Ondansetron [Zofran Odt] 4 mg PO Q8HR #20 tab.rapdis 03/26/19 Unknown Rx cephALEXin [Keflex] 500 mg PO Q12HR 10 Days #20 cap 03/26/19 Unknown Rx Ibuprofen [Motrin] 800 mg PO Q8HR PRN #25 tablet 03/27/19 Unknown Rx Acetaminophen/Codeine [Tylenol 1 tab PO Q6H PRN #12 tab 10/15/19 Unknown Rx /Codeine # 3 tab] Ibuprofen [Motrin 600 MG tab] 600 mg PO Q8H PRN #30 tab 11/01/19 Unknown Rx Nitrofurantoin Sutter/M-Cryst 100 mg PO BID 7 Days #14 capsule 11/01/19 Unknown Rx [Macrobid CAP] Ondansetron [Zofran Odt] 4 mg PO Q8HR #12 tab.rapdis 11/01/19 Unknown Rx ED Physical Exam - General Limitations: No Limitations General appearance: alert, in no apparent distress - Head Head exam: Present: normocephalic - Eye Eye exam: Present: normal appearance, EOMI Pupils: Present: normal accommodation - ENT ENT exam: Present: mucous membranes moist - Neck Neck exam: Present: normal inspection, full ROM. Absent: tenderness - Respiratory Respiratory exam: Present: normal lung sounds bilaterally. Absent: respiratory distress, wheezes, stridor, chest wall tenderness - Cardiovascular Cardiovascular Exam: Present: regular rate, normal rhythm, normal heart sounds. Absent: systolic murmur, diastolic murmur, rubs, gallop - GI/Abdominal GI/Abdominal exam: Present: soft, normal bowel sounds. Absent: distended, tenderness, guarding, rebound, rigid, bruit, hernia - Rectal Rectal exam: Present: deferred - Extremities Exam Extremities exam: Present: normal inspection, full ROM. Absent: tenderness - Back Exam Back exam: Present: normal inspection, full ROM. Absent: tenderness, CVA tenderness (R), CVA tenderness (L) - Neurological Exam Neurological exam: Present: alert, oriented X3 - Psychiatric Psychiatric exam: Present: normal affect, normal mood - Skin Skin exam: Present: warm, dry, intact, normal color. Absent: rash ED Course Vital Signs 10/31/19 10/31/19 22:07 22:43 Temperature 99.2 F 99.2 F Pulse Rate 101 H 99 H Respiratory 26 H 20 Rate Blood Pressure 128/83 128/83 O2 Sat by Pulse 100 100 Oximetry ED Medical Decision Making - Lab Data Result diagrams: 10/31/19 23:37 10/31/19 23:37 Labs 10/31/19 10/31/19 10/31/19 23:37 23:37 23:37 WBC 5.8 RBC 5.07 H Hgb 14.3 Hct 43.2 H MCV 85 MCH 28 MCHC 33 RDW 12.6 L Plt Count 269 Baso % (Auto) [employer] Basis Trader Add Manual Diff Complete Total Counted 100 Seg Neuts % (Manual) 61.0 Band Neutrophils % 0 Lymphocytes % (Manual) 25.0 Reactive Lymphs % (Man) 0 Monocytes % (Manual) 13.0 H Eosinophils % (Manual) 0 Basophils % (Manual) 1.0 Metamyelocytes % 0 Myelocytes % 0 Promyelocytes % 0 Blast Cells % 0 Nucleated RBC % Not Reportable Seg Neutrophils # Man 3.5 Band Neutrophils # 0.0 Lymphocytes # (Manual) 1.5 Abs React Lymphs (Man) 0.0 Monocytes # (Manual) 0.8 Eosinophils # (Manual) 0.0 Basophils # (Manual) 0.1 Metamyelocytes # 0.0 Myelocytes # 0.0 Promyelocytes # 0.0 Blast Cells # 0.0 WBC Morphology Not Reportable Hypersegmented Neuts Not Reportable Hyposegmented Neuts Not Reportable Hypogranular Neuts Not Reportable Smudge Cells Not Reportable Toxic Granulation Not Reportable Toxic Vacuolation Not Reportable Dohle Bodies Not Reportable Pelger-Huet Anomaly Not Reportable Ariel Rods Not Reportable Platelet Estimate Consistent w auto Clumped Platelets Not Reportable Plt Clumps, EDTA Not Reportable Large Platelets Not Reportable Giant Platelets Not Reportable Platelet Satelliting Not Reportable Plt Morphology Comment Not Reportable RBC Morphology Not Reportable Dimorphic RBCs Not Reportable Polychromasia Not Reportable Hypochromasia Not Reportable Poikilocytosis Not Reportable Anisocytosis Not Reportable Microcytosis Not Reportable Macrocytosis Not Reportable Spherocytes Not Reportable Pappenheimer Bodies Not Reportable Sickle Cells Not Reportable Target Cells Not Reportable Tear Drop Cells Not Reportable Ovalocytes Not Reportable Helmet Cells Not Reportable Neal-Pitkin Bodies Not Reportable Gillett Rings Not Reportable Twisp Cells Not Reportable Bite Cells Not Reportable Crenated Cell Not Reportable Elliptocytes Rare Acanthocytes (Spur) Not Reportable Rouleaux Not Reportable Hemoglobin C Crystals Not Reportable Schistocytes Not Reportable Malaria parasites Not Reportable Travis Bodies Not Reportable Hem Pathologist Commnt No Sodium 145 Potassium 3.3 L Chloride 105.3 Carbon Dioxide 20 L Anion Gap 23 BUN 20 H Creatinine 0.7 Estimated GFR > 60 BUN/Creatinine Ratio 29 Glucose 106 H Calcium 10.8 H Total Bilirubin 0.60 AST 14 ALT 10 Alkaline Phosphatase 55 Total Protein 8.6 H Albumin 5.4 H Albumin/Globulin Ratio 1.7 Lipase 32 Urine Color Urine Turbidity Urine pH Ur Specific [place] Urine Protein Urine Glucose (UA) Urine Ketones Urine Blood Urine Nitrite Urine Bilirubin Urine Urobilinogen Ur Leukocyte Esterase Urine WBC (Auto) Urine RBC (Auto) U Epithel Cells (Auto) Urine Bacteria (Auto) Urine Mucus Urine HCG, Qual 10/31/19 Unknown WBC RBC Hgb Hct MCV MCH MCHC RDW Plt Count Baso % (Auto) Add Manual Diff Total Counted Seg Neuts % (Manual) Band Neutrophils % Lymphocytes % (Manual) Reactive Lymphs % (Man) Monocytes % (Manual) Eosinophils % (Manual) Basophils % (Manual) Metamyelocytes % Myelocytes % Promyelocytes % Blast Cells % Nucleated RBC % Seg Neutrophils # Man Band Neutrophils # Lymphocytes # (Manual) Abs React Lymphs (Man) Monocytes # (Manual) Eosinophils # (Manual) Basophils # (Manual) Metamyelocytes # Myelocytes # Promyelocytes # Blast Cells # WBC Morphology Hypersegmented Neuts Hyposegmented Neuts Hypogranular Neuts Smudge Cells Toxic Granulation Toxic Vacuolation Dohle Bodies Pelger-Huet Anomaly Ariel Rods Platelet Estimate Clumped Platelets Plt Clumps, EDTA Large Platelets Giant Platelets Platelet Satelliting Plt Morphology Comment RBC Morphology Dimorphic RBCs Polychromasia Hypochromasia Poikilocytosis Anisocytosis Microcytosis Macrocytosis Spherocytes Pappenheimer Bodies Sickle Cells Target Cells Tear Drop Cells Ovalocytes Helmet Cells Neal-Pitkin Bodies Gillett Rings Mg Cells Bite Cells Crenated Cell Elliptocytes Acanthocytes (Spur) Rouleaux Hemoglobin C Crystals Schistocytes Malaria parasites Travis Bodies Hem Pathologist Commnt Sodium Potassium Chloride Carbon Dioxide Anion Gap BUN Creatinine Estimated GFR BUN/Creatinine Ratio Glucose Calcium Total Bilirubin AST ALT Alkaline Phosphatase Total Protein Albumin Albumin/Globulin Ratio Lipase Urine Color [place] Urine Turbidity Slightly-cloudy Urine pH 6.0 Ur Specific [place] 1.034 H Urine Protein 100 mg/dl Urine Glucose (UA) Neg Urine Ketones 80 Urine Blood Lg Urine Nitrite Neg Urine Bilirubin Neg Urine Urobilinogen < 2.0 Ur Leukocyte Esterase Neg Urine WBC (Auto) 12.0 H Urine RBC (Auto) 4.0 U Epithel Cells (Auto) 4.0 Urine Bacteria (Auto) 1+ Urine Mucus 3+ Urine HCG, Qual Negative - Medical Decision Making Symptoms are resolved with medications given in ed , plan, macrobid, ibuprofen, continue to hydrate, stop substance follow up with pcp in 2-3 days. pt verbalized agreement and understanding of same. Critical care attestation.: If time is entered above; I have spent that time in minutes in the direct care of this critically ill patient, excluding procedure time. ED Disposition Clinical Impression: Nausea and vomiting Qualifiers: Vomiting type: unspecified Vomiting Intractability: non-intractable Qualified Code(s): R11.2 - Nausea with vomiting, unspecified UTI (urinary tract infection) Qualifiers: Urinary tract infection type: acute cystitis Hematuria presence: without hematuria Qualified Code(s): N30.00 - Acute cystitis without hematuria Disposition: TO HOME OR SELFCARE Is pt being admited?: No Does the pt Need Aspirin: No Condition: Stable Instructions: Urinary Tract Infection in Women (ED), Acute Nausea and Vomiting (ED) Prescriptions: Nitrofurantoin Sutter/M-Cryst [Macrobid CAP] 100 mg PO BID 7 Days #14 capsule Ibuprofen [Motrin 600 MG tab] 600 mg PO Q8H PRN #30 tab PRN Reason: Pain , Severe (7-10) Ondansetron [Zofran Odt] 4 mg PO Q8HR #12 tab.rapdis Referrals: [facility] [Outside] - 3-5 Days Forms: Work/School Release Form(ED) Time of Disposition: 03:54
[2019-11-01 02:04] LABS: Bacteria,Urine 1+ /HPF (Negative); Bilirubin,Urine NEG (Negative); Blood,Urine LG (Negative); Color,Urine Amber (Yellow); Mucus,Urine 3+ /HPF; Urobilinogen,Urine < 2.0 mg/dL (<2.0)
[2019-11-01 02:11] LABS: HCG Qualitative,Urine Negative (Negative)
[2019-11-01 02:50] LABS: Eosinophils % (Manual) 0 % (0.0-4.3); Total Cells Counted 100
[2019-11-01 02:51] LABS: Platelet Estimate Consistent w Auto
[2019-11-01] MEDS ORDERED: IBUPROFEN 600 MG TAB PO ONE ×2 (03:44→03:51)
[2019-11-01] MEDS ORDERED: NITROFURANTOIN MONOHYD/M-CRYST 100 MG CAP PO ONE (03:44)
[2019-11-01] MEDS ORDERED: ACETAMINOPHEN 500 MG TAB ONE (03:44)
[2019-11-01] MEDS ORDERED: NITROFURANTOIN MONOHYD/M-CRYST 100 MG CAP ONE (03:46)
[2019-11-01] MEDS ORDERED: ACETAMINOPHEN 500 MG TAB PO ONE (03:51)
== END 2019-11-01 04:00 | disposition home or self-care (01) ==
LOC: ED 21:36
DX: N39.0 Urinary tract infection, site not specified (principal); F32.9 Major depressive disorder, single episode, unspecified; F41.9 Anxiety disorder, unspecified; F12.10 Cannabis abuse, uncomplicated; J45.909 Unspecified asthma, uncomplicated; Z79.899 Other long term (current) drug therapy
CPT/HCPCS: 36415; 80053; 81001; 81025; 83690; 85007; 85025; 87086; 96361; 96374; 99283; J2405; J7030

== ENCOUNTER 2019-11-03 11:48 | Emergency (ER) | payer SELFPAY ==
--- NOTE | 2019-11-03 13:09 | Event Note ---
ED Screening Note Date of service: 11/03/19 Time: 13:07 ED Screening Note: 19 y/o female comes in for 1 day history of insect bite to left hand. Having pain and nausea. PMH asthma. No fevers This initial assessment/diagnostic orders/clinical plan/treatment(s) is/are subject to change based on patients health status, clinical progression and re- assessment by fellow clinical providers in the ED. Further treatment and workup at subsequent clinical providers discretion. Patient/guardian urged not to elope from the ED as their condition may be serious if not clinically assessed and managed. Initial orders include:
[2019-11-03] MEDS ORDERED: IBUPROFEN 600 MG TAB PO ONE (14:20)
[2019-11-03] MEDS ORDERED: methylPREDNISolone Sod Succinate 125 MG/2 ML INJ IM ONE (16:54)
[2019-11-03] MEDS ORDERED: diphenhydrAMINE 25 MG CAP PO ONE (16:54)
[2019-11-03] MEDS ORDERED: FAMOTIDINE 20 MG TAB PO ONE (16:55)
--- NOTE | 2019-11-03 16:57 | Emergency Department Report ---
ED General Adult HPI - General Chief complaint: Extremity Injury, Upper Stated complaint: SPIDER BITE LT HAND SWELLING Time Seen by Provider: 11/03/19 13:06 Source: patient Mode of arrival: Ambulatory Limitations: No Limitations - History of Present Illness Initial comments: 19-year-old female states that she recently started sleeping in her mother's [facility] room yesterday she reports getting bitten on her left hand by a spider. She complains of her left hand itching not relieved with Benadryl and this morning her left hand is now red and swollen. Patient also have multiple red raised areas that appears to be hives on her for head neck and chin and upper back. C/o itching -: Sudden Location: head, face, back, upper extremity (left hand) Severity scale (0 -10): 10 Consistency: constant Improves with: none Associated Symptoms: other (itching, painful nausea). denies: confusion, chest pain, cough, diaphoresis, fever/chills, loss of appetite, malaise, nausea/vomiting, shortness of breath, syncope - Related Data Previous Rx's Medication Instructions Recorded Last Taken Type Acetaminophen [Acetaminophen TAB] 650 mg PO Q6HR PRN #30 tablet 03/26/19 Unknown Rx Ondansetron [Zofran Odt] 4 mg PO Q8HR #20 tab.rapdis 03/26/19 Unknown Rx cephALEXin [Keflex] 500 mg PO Q12HR 10 Days #20 cap 03/26/19 Unknown Rx Ibuprofen [Motrin] 800 mg PO Q8HR PRN #25 tablet 03/27/19 Unknown Rx Acetaminophen/Codeine [Tylenol 1 tab PO Q6H PRN #12 tab 10/15/19 Unknown Rx /Codeine # 3 tab] Ibuprofen [Motrin 600 MG tab] 600 mg PO Q8H PRN #30 tab 11/01/19 Unknown Rx Nitrofurantoin [place]/M-Cryst 100 mg PO BID 7 Days #14 capsule 11/01/19 Unknown Rx [Macrobid CAP] Ondansetron [Zofran Odt] 4 mg PO Q8HR #12 tab.rapdis 11/01/19 Unknown Rx Famotidine [Pepcid] 20 mg PO BID 3 Days #6 tablet 11/03/19 Unknown Rx predniSONE [Deltasone] 20 mg PO QDAY #3 tab 11/03/19 Unknown Rx Allergies Allergy/AdvReac Type Severity Reaction Status Date / Time No Known Allergies Allergy Verified 11/03/19 11:49 ED Review of Systems ROS: Stated complaint: SPIDER BITE LT HAND SWELLING Other details as noted in HPI Comment: All other systems reviewed and negative Constitutional: denies: chills, fever ENT: denies: ear pain, throat pain Respiratory: denies: cough, shortness of breath, wheezing Cardiovascular: denies: chest pain, palpitations Gastrointestinal: nausea. denies: abdominal pain Skin: rash, change in color, pruritus Neurological: denies: headache, weakness Psychiatric: denies: anxiety ED Past Medical Hx - Past Medical History Hx Psychiatric Treatment: Yes (anxiety attacks, depression) Hx Asthma: Yes - Social History Smoking Status: Never Smoker Substance Use Type: Marijuana - Medications Home Medications: Home Medications Medication Instructions Recorded Confirmed Last Taken Type Acetaminophen [Acetaminophen TAB] 650 mg PO Q6HR PRN #30 tablet 03/26/19 Unknown Rx Ondansetron [Zofran Odt] 4 mg PO Q8HR #20 tab.rapdis 03/26/19 Unknown Rx cephALEXin [Keflex] 500 mg PO Q12HR 10 Days #20 cap 03/26/19 Unknown Rx Ibuprofen [Motrin] 800 mg PO Q8HR PRN #25 tablet 03/27/19 Unknown Rx Acetaminophen/Codeine [Tylenol 1 tab PO Q6H PRN #12 tab 10/15/19 Unknown Rx /Codeine # 3 tab] Ibuprofen [Motrin 600 MG tab] 600 mg PO Q8H PRN #30 tab 11/01/19 Unknown Rx Nitrofurantoin Waldo/M-Cryst 100 mg PO BID 7 Days #14 capsule 11/01/19 Unknown Rx [Macrobid CAP] Ondansetron [Zofran Odt] 4 mg PO Q8HR #12 tab.rapdis 11/01/19 Unknown Rx Famotidine [Pepcid] 20 mg PO BID 3 Days #6 tablet 11/03/19 Unknown Rx predniSONE [Deltasone] 20 mg PO QDAY #3 tab 11/03/19 Unknown Rx ED Physical Exam - General Limitations: No Limitations General appearance: alert, in no apparent distress - Head Head exam: Present: atraumatic - Eye Eye exam: Present: normal appearance - ENT ENT exam: Present: normal exam, other (no postpharyngeal swelling or erythrema) - Neck Neck exam: Present: normal inspection, other (posterior neck multiple hives) - Respiratory Respiratory exam: Present: normal lung sounds bilaterally. Absent: respiratory distress, wheezes, rales - Cardiovascular Cardiovascular Exam: Present: regular rate, normal heart sounds - GI/Abdominal GI/Abdominal exam: Absent: soft, distended, tenderness - Extremities Exam Extremities exam: Present: tenderness (left hand swelling redness, insect bite boland no limited rom.) - Back Exam Back exam: Present: normal inspection - Neurological Exam Neurological exam: Present: alert, oriented X3 - Psychiatric Psychiatric exam: Present: normal affect - Skin Skin exam: Present: warm, dry, erythema (right hand erythema, + swelling and tenderness + boland that appears to be from insect) ED Course Vital Signs 11/03/19 13:08 Temperature 98.8 F Pulse Rate 78 Respiratory 18 Rate Blood Pressure 102/69 [102/69] ED Medical Decision Making - Medical Decision Making 19-year-old female with multiple spider bites to her left hand her left hand is warm and red and swollen and tender to touch she does have good mobility of her fingers and strong radial pulse. Her right hand is casted from her prior fracture. Patient also will have hives that are seen on her forehead and chin a nd multiple on her posterior neck. On examination her lungs is clear her oral airway is clear no postpharyngeal edema Airways patent. We will treat like a allergic reaction and possible cellulitis from a spider bite to her left. Critical Care Time: No Critical care attestation.: If time is entered above; I have spent that time in minutes in the direct care of this critically ill patient, excluding procedure time. ED Disposition Clinical Impression: Cellulitis and abscess of hand Spider bite allergy, current reaction Qualifiers: Encounter type: initial encounter Injury intent: accidental or unintentional Qualified Code(s): T63.301A - Toxic effect of unspecified spider venom, accidental (unintentional), initial encounter Disposition: TO HOME OR SELFCARE Is pt being admited?: No Does the pt Need Aspirin: No Condition: Stable Instructions: Urticaria (ED), Cellulitis (ED) Additional Instructions: Wash skin with soap and water. Keep clean and dry. Take medications as prescribed. Take Benadryl 1-2 tabs every 4 hours as needed for itching [facility] up with [facility] or return to the ER for worsening pain swelling redness fever, or shortness of breath. Prescriptions: predniSONE [Deltasone] 20 mg PO QDAY #3 tab Famotidine [Pepcid] 20 mg PO BID 3 Days #6 tablet [place] [facility] [facility]Primary Care Provider[facility] - 3-5 Days Time of Disposition: 17:16
[2019-11-03 17:45] VITALS: BP 111/72
== END 2019-11-03 17:45 | disposition home or self-care (01) ==
LOC: ED 11:48
DX: T63.301A Toxic effect of unspecified spider venom, accidental (unintentional), initial encounter (principal); L03.113 Cellulitis of right upper limb; J45.909 Unspecified asthma, uncomplicated; F12.10 Cannabis abuse, uncomplicated; F32.89 Other specified depressive episodes; F41.9 Anxiety disorder, unspecified; Z79.899 Other long term (current) drug therapy; X58.XXXA Exposure to other specified factors, initial encounter; Y93.89 Activity, other specified; Y92.89 Other specified places as the place of occurrence of the external cause; Y99.8 Other external cause status
CPT/HCPCS: 96372; 99282; J2930

== ENCOUNTER 2019-12-07 22:48 | Emergency (ER) | payer SELFPAY ==
[2019-12-07] MEDS ORDERED: HALOPERIDOL LACTATE 5 MG/1 ML INJ IV STA (23:01)
[2019-12-07] MEDS ORDERED: SODIUM CHLORIDE 0.9% 1000 ML 1,000 ML IV ONE (23:02)
[2019-12-07] MEDS ORDERED: diphenhydrAMINE 50 MG/ML VIAL IV ONE ×2 (23:02→23:50)
--- NOTE | 2019-12-07 23:05 | Emergency Department Report ---
ED Abdominal Pain HPI - General Stated Complaint: ABD PAIN Time Seen by Provider: 12/07/19 22:53 Source: patient, EMS Mode of arrival: Stretcher Limitations: No Limitations - History of Present Illness Initial Comments: Ms. Subramanian is a 19 yo female with history of anxiety who presents with crampy abdominal pain nausea vomiting per EMS. Has had 1 previous episode similar requiring ED care. Denies fever. Gradual onset of symptoms today. She does use marijuana. Denies tobacco or alcohol use. Has been vomiting for the past 5 hours. MD Complaint: abdominal pain -: Gradual, days(s) (1) Location: diffuse Severity: severe Quality: cramping Consistency: constant Improves With: nothing Worsens With: nothing Associated Symptoms: nausea, vomiting - Related Data Previous Rx's Medication Instructions Recorded Last Taken Type Acetaminophen [Acetaminophen TAB] 650 mg PO Q6HR PRN #30 tablet 03/26/19 Unknown Rx Ondansetron [Zofran Odt] 4 mg PO Q8HR #20 tab.rapdis 03/26/19 Unknown Rx cephALEXin [Keflex] 500 mg PO Q12HR 10 Days #20 cap 03/26/19 Unknown Rx Ibuprofen [Motrin] 800 mg PO Q8HR PRN #25 tablet 03/27/19 Unknown Rx Acetaminophen/Codeine [Tylenol 1 tab PO Q6H PRN #12 tab 10/15/19 Unknown Rx /Codeine # 3 tab] Ibuprofen [Motrin 600 MG tab] 600 mg PO Q8H PRN #30 tab 11/01/19 Unknown Rx Nitrofurantoin [place]/M-Cryst 100 mg PO BID 7 Days #14 capsule 11/01/19 Unknown Rx [Macrobid CAP] Ondansetron [Zofran Odt] 4 mg PO Q8HR #12 tab.rapdis 11/01/19 Unknown Rx Famotidine [Pepcid] 20 mg PO BID 3 Days #6 tablet 11/03/19 Unknown Rx predniSONE [Deltasone] 20 mg PO QDAY #3 tab 11/03/19 Unknown Rx Promethazine [Phenergan] 25 mg PO Q6HR PRN #10 tab 12/08/19 Unknown Rx Allergies Allergy/AdvReac Type Severity Reaction Status Date / Time No Known Allergies Allergy Verified 11/03/19 11:49 ED Review of Systems ROS: Stated complaint: ABD PAIN Other details as noted in HPI Comment: All other systems reviewed and negative Constitutional: denies: fever, malaise Respiratory: denies: cough ED Past Medical Hx - Past Medical History Previous Medical History?: Yes Hx Psychiatric Treatment: Yes (anxiety attacks, depression) Hx Asthma: Yes - Social History Smoking Status: Never Smoker Substance Use Type: Marijuana - Medications Home Medications: Home Medications Medication Instructions Recorded Confirmed Last Taken Type Acetaminophen [Acetaminophen TAB] 650 mg PO Q6HR PRN #30 tablet 03/26/19 Unknown Rx Ondansetron [Zofran Odt] 4 mg PO Q8HR #20 tab.rapdis 03/26/19 Unknown Rx cephALEXin [Keflex] 500 mg PO Q12HR 10 Days #20 cap 03/26/19 Unknown Rx Ibuprofen [Motrin] 800 mg PO Q8HR PRN #25 tablet 03/27/19 Unknown Rx Acetaminophen/Codeine [Tylenol 1 tab PO Q6H PRN #12 tab 10/15/19 Unknown Rx /Codeine # 3 tab] Ibuprofen [Motrin 600 MG tab] 600 mg PO Q8H PRN #30 tab 11/01/19 Unknown Rx Nitrofurantoin [place]/M-Cryst 100 mg PO BID 7 Days #14 capsule 11/01/19 Unknown Rx [Macrobid CAP] Ondansetron [Zofran Odt] 4 mg PO Q8HR #12 tab.rapdis 11/01/19 Unknown Rx Famotidine [Pepcid] 20 mg PO BID 3 Days #6 tablet 11/03/19 Unknown Rx predniSONE [Deltasone] 20 mg PO QDAY #3 tab 11/03/19 Unknown Rx Promethazine [Phenergan] 25 mg PO Q6HR PRN #10 tab 12/08/19 Unknown Rx ED Physical Exam - General General appearance: alert, anxious, other (Crying retching rocking back and forth in bed) - Head Head exam: Present: atraumatic, normocephalic - Eye Eye exam: Present: normal appearance - ENT ENT exam: Present: mucous membranes moist - Neck Neck exam: Present: normal inspection, full ROM - Respiratory Respiratory exam: Present: normal lung sounds bilaterally. Absent: respiratory distress, wheezes, rales, rhonchi - Cardiovascular Cardiovascular Exam: Present: regular rate, normal rhythm, normal heart sounds. Absent: systolic murmur, diastolic murmur, rubs, gallop - GI/Abdominal GI/Abdominal exam: Present: soft, normal bowel sounds. Absent: distended, tenderness, guarding, rebound - Extremities Exam Extremities exam: Present: normal inspection - Neurological Exam Neurological exam: Present: alert, oriented X3 - Psychiatric Psychiatric exam: Present: normal affect, anxious - Skin Skin exam: Present: warm, dry, intact, normal color. 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 Sodium Potassium Chloride Carbon Dioxide Anion Gap BUN Creatinine Estimated GFR BUN/Creatinine Ratio Glucose Calcium Total Bilirubin 0.20 Direct Bilirubin < 0.2 Indirect Bilirubin 0.0 AST 18 ALT 9 Alkaline Phosphatase 53 Total Protein 7.5 Albumin 5.1 H Albumin/Globulin Ratio 2.1 Lipase 18 HCG, Qual Negative 12/07/19 23:17 WBC RBC Hgb Hct MCV MCH MCHC RDW Plt Count Baso % (Auto) Sodium 141 Potassium 3.0 L Chloride 102.1 Carbon Dioxide 16 L Anion Gap 26 BUN 13 Creatinine 0.7 Estimated GFR > 60 BUN/Creatinine Ratio 19 Glucose 148 H Calcium 9.8 Total Bilirubin Direct Bilirubin Indirect Bilirubin AST ALT Alkaline Phosphatase Total Protein Albumin Albumin/Globulin Ratio Lipase HCG, Qual - Medical Decision Making 1. abdominal pain, n/v: DDX: IBS, cannabinoid hyperemesis syndrome, ruled out, no peritoneal signs, normal WBC, treated with haloperidol, diphenhydramine, zofran, benadryl 2. starvation ketosis: treated with IVF rx: promethazine recommended marijuana use cessation Critical care attestation.: If time is entered above; I have spent that time in minutes in the direct care of this critically ill patient, excluding procedure time. ED Disposition Clinical Impression: Abdominal pain, Nausea & vomiting, Dehydration Disposition: DC-01 TO HOME OR SELFCARE Is pt being admited?: No Does the pt Need Aspirin: No Condition: Stable Instructions: Abdominal Pain (ED) Additional Instructions: Marijuana will make your symptoms worse. Please refrain from marijuana use for the next 3 months. Prescriptions: Promethazine [Phenergan] 25 mg PO Q6HR PRN #10 tab PRN Reason: Nausea Referrals: ROXANN SALAZAR MD [Staff Physician] - 3-5 Days Forms: Work/School Release Form(ED)
[2019-12-07 23:44] LABS: Hematocrit 39.4 % (30.3-42.9); Hemoglobin 13.3 gm/dl (10.1-14.3); Mean Corpuscular HGB Conc 34 % (30-34); Mean Corpuscular Volume 86 fl (79-97); Platelet Count 228 K/mm3 (140-440); Red Blood Count 4.61 M/mm3 (3.65-5.03); Red Cell Distribution Width 13.1 % (13.2-15.2)
[2019-12-07] MEDS ORDERED: ONDANSETRON 4 MG/2 ML INJ IV ONE (23:50)
[2019-12-08 00:01] LABS: Alanine Aminotransferase 9 units/L (7-56); Albumin 5.1 g/dL (3.9-5)
[2019-12-08 00:03] LABS: Bilirubin,Direct < 0.2 mg/dL (0-0.2)
[2019-12-08 00:04] LABS: BUN/Creatinine Ratio 19; Blood Urea Nitrogen 13 mg/dL (7-17); Calcium 9.8 mg/dL (8.4-10.2); Hemolysis Index 5
[2019-12-08] MEDS ORDERED: SODIUM CHLORIDE 0.9% 1000 ML 1,000 ML IV ONE (00:34)
[2019-12-08] MEDS ORDERED: ONDANSETRON 4 MG/2 ML INJ IV ONE (01:44)
[2019-12-08 04:39] LABS: Anisocytosis 1+; Basophils % (Manual) 0 % (0.0-1.8); Eosinophils % (Manual) 0 % (0.0-4.3); Platelet Estimate Consistent w Auto; Total Cells Counted 100
== END 2019-12-08 02:26 | disposition home or self-care (01) ==
LOC: ED 22:48
DX: E86.0 Dehydration (principal); R11.2 Nausea with vomiting, unspecified; R10.84 Generalized abdominal pain; F41.9 Anxiety disorder, unspecified; F32.9 Major depressive disorder, single episode, unspecified; J45.909 Unspecified asthma, uncomplicated; F12.90 Cannabis use, unspecified, uncomplicated; Z79.899 Other long term (current) drug therapy
CPT/HCPCS: 36415; 80048; 80076; 83690; 84703; 85007; 85025; 96361; 96374; 96375; 96376; 99284; J1200; J1630; J2405; J7030; 96367

== ENCOUNTER 2020-05-03 12:35 | Emergency (ER) | payer SELFPAY ==
[2020-05-03 14:15] LABS: Hematocrit 38.8 % (30.3-42.9); Hemoglobin 12.8 gm/dl (10.1-14.3); Mean Corpuscular HGB Conc 33 % (30-34); Mean Corpuscular Volume 88 fl (79-97); Platelet Count 246 K/mm3 (140-440); Red Blood Count 4.43 M/mm3 (3.65-5.03); Red Cell Distribution Width 12.9 % (13.2-15.2)
[2020-05-03 14:20] LABS: Bilirubin,Urine NEG (Negative); Blood,Urine LG (Negative); Color,Urine Yellow (Yellow); Mucus,Urine FEW /HPF; Urobilinogen,Urine < 2.0 mg/dL (<2.0)
[2020-05-03 14:24] LABS: HCG Qualitative,Urine Negative (Negative)
[2020-05-03 14:29] LABS: Alanine Aminotransferase 12 units/L (7-56); Albumin 5.2 g/dL (3.9-5); BUN/Creatinine Ratio 11; Blood Urea Nitrogen 9 mg/dL (7-17); Calcium 10.2 mg/dL (8.4-10.2); Hemolysis Index 4
[2020-05-03] MEDS ORDERED: SODIUM CHLORIDE 0.9% 1000 ML 1,000 ML IV ONE ×2 (14:45→17:47)
[2020-05-03] MEDS ORDERED: ONDANSETRON 4 MG/2 ML INJ IV ONE (14:45)
--- NOTE | 2020-05-03 14:51 | Emergency Department Report ---
ED Abdominal Pain HPI - General Chief Complaint: Abdominal Pain Stated Complaint: ABD PAIN Time Seen by Provider: 05/03/20 14:44 Source: EMS Mode of arrival: Ambulatory Limitations: No Limitations - History of Present Illness Initial Comments: 19-year-old -[place] female that is known to this provider comes in for generalized abdominal pain nausea and vomiting since 5 AM. Patient denies any dysuria. Patient admits that she smokes weed every day and last use was yesterday. Patient was last seen here on 03/29/2020 twice for the same complaint of diffuse abdominal pain nausea and vomiting. Feel patient's medical chart she has a history of anxiety depression drug overdose. MD Complaint: abdominal pain -: This morning Time: 05:00 Location: diffuse Severity scale (0 -10): 8 Quality: aching, sharp Consistency: constant Improves With: nothing Worsens With: nothing Associated Symptoms: nausea, vomiting - Related Data Previous Rx's Medication Instructions Recorded Last Taken Type Acetaminophen [Acetaminophen TAB] 650 mg PO Q6HR PRN #30 tablet 03/26/19 Unknown Rx Ondansetron [Zofran Odt] 4 mg PO Q8HR #20 tab.rapdis 03/26/19 Unknown Rx cephALEXin [Keflex] 500 mg PO Q12HR 10 Days #20 cap 03/26/19 Unknown Rx Ibuprofen [Motrin] 800 mg PO Q8HR PRN #25 tablet 03/27/19 Unknown Rx Acetaminophen/Codeine [Tylenol 1 tab PO Q6H PRN #12 tab 10/15/19 Unknown Rx /Codeine # 3 tab] Ibuprofen [Motrin 600 MG tab] 600 mg PO Q8H PRN #30 tab 11/01/19 Unknown Rx Nitrofurantoin [place]/M-Cryst 100 mg PO BID 7 Days #14 capsule 11/01/19 Unknown Rx [Macrobid CAP] Famotidine [Pepcid] 20 mg PO BID 3 Days #6 tablet 11/03/19 Unknown Rx predniSONE [Deltasone] 20 mg PO QDAY #3 tab 11/03/19 Unknown Rx Promethazine [Phenergan] 25 mg PO Q6HR PRN #10 tab 12/08/19 Unknown Rx Hyoscyamine Subl [Levsin Sl 0.125 0.125 mg SL Q4HR PRN #30 tablet 03/29/20 Unknown Rx TAB] bisacodyL [Dulcolax suppos] 10 mg CA QDAY PRN #5 supp.rect 03/29/20 Unknown Rx polyethylene glycoL 3350 [Miralax 17 gm PO BID PRN 10 Days #3 packet 03/29/20 Unknown Rx 3350] Ibuprofen [Motrin 800 MG tab] 800 mg PO Q8HR PRN #30 tablet 05/01/20 Unknown Rx methOCARBAMOL [Robaxin TAB] 500 mg PO BID #20 tab 05/01/20 Unknown Rx Ondansetron [Zofran ODT TAB] 4 mg PO Q8HR #12 tab.rapdis 05/03/20 Unknown Rx Allergies Allergy/AdvReac Type Severity Reaction Status Date / Time No Known Allergies Allergy Verified 05/03/20 12:42 ED Review of Systems ROS: Stated complaint: ABD PAIN Other details as noted in HPI Comment: All other systems reviewed and negative ED Past Medical Hx - Past Medical History Hx Psychiatric Treatment: Yes (anxiety attacks, depression) Hx Asthma: Yes - Social History Smoking Status: Never Smoker Substance Use Type: Marijuana - Medications Home Medications: Home Medications Medication Instructions Recorded Confirmed Last Taken Type Acetaminophen [Acetaminophen TAB] 650 mg PO Q6HR PRN #30 tablet 03/26/19 Unknown Rx Ondansetron [Zofran Odt] 4 mg PO Q8HR #20 tab.rapdis 03/26/19 Unknown Rx cephALEXin [Keflex] 500 mg PO Q12HR 10 Days #20 cap 03/26/19 Unknown Rx Ibuprofen [Motrin] 800 mg PO Q8HR PRN #25 tablet 03/27/19 Unknown Rx Acetaminophen/Codeine [Tylenol 1 tab PO Q6H PRN #12 tab 10/15/19 Unknown Rx /Codeine # 3 tab] Ibuprofen [Motrin 600 MG tab] 600 mg PO Q8H PRN #30 tab 11/01/19 Unknown Rx Nitrofurantoin [place]/M-Cryst 100 mg PO BID 7 Days #14 capsule 11/01/19 Unknown Rx [Macrobid CAP] Famotidine [Pepcid] 20 mg PO BID 3 Days #6 tablet 11/03/19 Unknown Rx predniSONE [Deltasone] 20 mg PO QDAY #3 tab 11/03/19 Unknown Rx Promethazine [Phenergan] 25 mg PO Q6HR PRN #10 tab 12/08/19 Unknown Rx Hyoscyamine Subl [Levsin Sl 0.125 0.125 mg SL Q4HR PRN #30 tablet 03/29/20 Unknown Rx TAB] bisacodyL [Dulcolax suppos] 10 mg CA QDAY PRN #5 supp.rect 03/29/20 Unknown Rx polyethylene glycoL 3350 [Miralax 17 gm PO BID PRN 10 Days #3 packet 03/29/20 Unknown Rx 3350] Ibuprofen [Motrin 800 MG tab] 800 mg PO Q8HR PRN #30 tablet 05/01/20 Unknown Rx methOCARBAMOL [Robaxin TAB] 500 mg PO BID #20 tab 05/01/20 Unknown Rx Ondansetron [Zofran ODT TAB] 4 mg PO Q8HR #12 tab.rapdis 05/03/20 Unknown Rx ED Physical Exam - General Limitations: No Limitations General appearance: alert - Head Head exam: Present: atraumatic, normocephalic - Eye Eye exam: Present: normal appearance - ENT ENT exam: Present: mucous membranes moist - Neck Neck exam: Present: normal inspection - Respiratory Respiratory exam: Present: normal lung sounds bilaterally. Absent: respiratory distress - Cardiovascular Cardiovascular Exam: Present: regular rate, normal rhythm. Absent: systolic murmur, diastolic murmur, rubs, gallop - GI/Abdominal GI/Abdominal exam: Present: soft, tenderness. Absent: distended, guarding - Back Exam Back exam: Present: normal inspection - Neurological Exam Neurological exam: Present: alert, oriented X3 - Psychiatric Psychiatric exam: Present: normal affect, normal mood - Skin Skin exam: Present: warm, dry, intact, normal color. Absent: rash ED Course Vital Signs 05/03/20 05/03/20 12:44 15:46 Temperature 97.9 F Pulse Rate 109 H 94 H Respiratory 18 18 Rate Blood Pressure 122/67 Blood Pressure 142/85 [Right] O2 Sat by Pulse 100 98 Oximetry ED Medical Decision Making - Lab Data Result diagrams: 05/03/20 13:21 05/03/20 13:21 - Medical Decision Making 19-year-old -[place] female that is known to this provider comes in for generalized abdominal pain nausea and vomiting since 5 AM. Patient denies any dysuria. Patient admits that she smokes weed every day and last use was yesterday. Patient was last seen here on 03/29/2020 twice for the same complaint of diffuse abdominal pain nausea and vomiting. Feel patient's medical chart s he has a history of anxiety depression drug overdose. CBC CMP urinalysis. Urinalysis shows 80 ketones large amount of blood. Patient was started on IV normal saline Zofran 4 mg IV. Discussed with patient she needs to stop smoking marijuana causing her nausea vomiting abdominal pain. Mental health referral. Critical care attestation.: If time is entered above; I have spent that time in minutes in the direct care of this critically ill patient, excluding procedure time. ED Disposition Clinical Impression: Cannabis hyperemesis syndrome concurrent with and due to cannabis abuse Disposition: DC-01 TO HOME OR SELFCARE Is pt being admited?: No Does the pt Need Aspirin: No Condition: Stable Instructions: Abdominal Pain (ED), Acute Nausea and Vomiting (ED) Additional Instructions: Very important for you stop smoking marijuana is causing your abdominal pain or nausea and vomiting. All your labs are negative for any acute findings. Prescriptions: Ondansetron [Zofran ODT TAB] 4 mg PO Q8HR #12 tab.rapdis Referrals: PRIMARY CARE, [Primary Care Provider] - 3-5 Days [facility] [Provider Group] - 3-5 Days [facility] [Outside] - 3-5 Days
[2020-05-03 16:11] LABS: Basophils % (Auto) 0.5 % (0.0-1.8); Lymphocytes # (Auto) 0.4 K/mm3 (1.2-5.4); Monocytes # (Auto) 0.2 K/mm3 (0.0-0.8)
[2020-05-03 16:31] LABS: Basophils % (Manual) 0 % (0.0-1.8); Eosinophils % (Manual) 0 % (0.0-4.3); RBC Morphology Normal; Total Cells Counted 100
[2020-05-03] MEDS ORDERED: PROMETHAZINE 25 MG RECT SUPP PR ONE (17:47)
--- NOTE | 2020-05-03 18:34 | XRay Report ---
CHEST 1 VIEW INDICATION: MAIN COMPARISON: None FINDINGS: SUPPORT DEVICES: None. HEART / MEDIASTINUM: No significant abnormality. LUNGS / PLEURA: No significant pulmonary or pleural abnormality. No pneumothorax. ADDITIONAL FINDINGS: IMPRESSION: 1. No acute cardiopulmonary disease Signer Name: Jimmie Obando MD Signed: 05/03/2020 6:29 PM Workstation Name: [id number]
[2020-05-03 20:10] VITALS: BP 115/74
== END 2020-05-03 20:08 | disposition home or self-care (01) ==
LOC: ED 12:35
DX: R11.2 Nausea with vomiting, unspecified (principal); F12.10 Cannabis abuse, uncomplicated; F41.9 Anxiety disorder, unspecified; J45.909 Unspecified asthma, uncomplicated; Z79.1 Long term (current) use of non-steroidal anti-inflammatories (NSAID); Z79.899 Other long term (current) drug therapy
CPT/HCPCS: 36415; 71045; 80053; 81001; 81025; 83690; 85007; 85025; 96361; 96374; 99284; J2405; J7030

== ENCOUNTER 2021-01-12 16:00 | Emergency (ER) | payer SELFPAY ==
--- NOTE | 2021-01-12 16:51 | Event Note ---
ED Screening Note Date of service: 01/12/21 Time: 16:50 ED Screening Note: This pleasant 20-year-old female presents the emergency department chief complaint of lower abdominal pain over the past few days. She reports positive for discharge. Denies any associated fever, chills, night sweats, headache, dizziness, blurry vision, nausea, vomiting, diarrhea, fever, weakness or any other associated symptoms. This initial assessment/diagnostic orders/clinical plan/treatment(s) is/are subject to change based on patients health status, clinical progression and re- assessment by fellow clinical providers in the ED. Further treatment and workup at subsequent clinical providers discretion. Patient/guardian urged not to elope from the ED as their condition may be serious if not clinically assessed and managed. Initial orders include: Urinalysis, urine test
[2021-01-12 16:52] VITALS: BP 106/46
[2021-01-12] MEDS ORDERED: ACETAMINOPHEN 325 MG TAB ONE (18:20)
[2021-01-12] MEDS ORDERED: ACETAMINOPHEN 325 MG TAB PO ONE (18:21)
[2021-01-12 18:34] LABS: Bilirubin,Urine NEG (Negative); Blood,Urine MOD (Negative); Color,Urine Yellow (Yellow); Mucus,Urine FEW /HPF; Protein,Urine <15 mg/dL mg/dL (Negative); Urobilinogen,Urine < 2.0 mg/dL (<2.0)
[2021-01-12 18:36] LABS: RBC,Urine > 182.0 /HPF (0.0-6.0)
[2021-01-12 18:37] LABS: HCG Qualitative,Urine Positive (Negative)
[2021-01-12] MEDS ORDERED: FAMOTIDINE 20 MG TAB PO ONE (19:40)
[2021-01-12] MEDS ORDERED: PROMETHAZINE 25 MG TAB PO ONE (19:40)
[2021-01-12 20:21] LABS: Basophils % (Auto) 0.5 % (0.0-1.8); Eosinophils % (Auto) 0.5 % (0.0-4.3); Hematocrit 36.2 % (30.3-42.9); Hemoglobin 12.1 gm/dl (10.1-14.3); Lymphocytes # (Auto) 1.1 K/mm3 (1.2-5.4); Lymphocytes % (Auto) 18.1 % (13.4-35.0); Mean Corpuscular HGB Conc 33 % (30-34); Mean Corpuscular Volume 90 fl (79-97); Monocytes # (Auto) 0.5 K/mm3 (0.0-0.8); Platelet Count 165 K/mm3 (140-440); Red Blood Count 4.04 M/mm3 (3.65-5.03); Red Cell Distribution Width 13.1 % (13.2-15.2)
[2021-01-12 20:29] LABS: Alanine Aminotransferase 12 units/L (7-56); Albumin 3.8 g/dL (3.9-5); Blood Urea Nitrogen 5 mg/dL (7-17); Calcium 9.2 mg/dL (8.4-10.2); Hemolysis Index 7
[2021-01-12 20:40] LABS: BUN/Creatinine Ratio 13
--- NOTE | 2021-01-12 20:55 | Ultrasound Report ---
ULTRASOUND OBSTETRIC COMPLETE INDICATION / CLINICAL INFORMATION: Abdominal pain , . Clinical Gestational Age (GA) in weeks.days: 19.6 TECHNIQUE: Transabdominal. COMPARISON: None available. FINDINGS: NUMBER: Single PRESENTATION: breech PLACENTA: Anterior and right lateral and free of the os. MATERNAL ADNEXA: No significant abnormality. AMNIOTIC FLUID VOLUME: normal AMNIOTIC FLUID INDEX (IMELDA) in cm (if measured): Not measured ANATOMY: organs (including the bladder, stomach, kidneys, heart, umbilical cord, diaphragm, cord inserti on, spine and intracranial structures) are visualized and show no significant abnormality with the fo llowing exception(s): None. MEASUREMENTS: - Biparietal Diameter = 4.4 cm = 19.1 weeks.days - Head Circumference = 16.9 cm = 19.4 weeks.days - Abdominal Circumference = 14.3 cm = 19.5 weeks.days - Femur Length = 3.1 cm = 19.3 weeks.days - Estimated Weight (in grams, if calculated): 299 - Heart Rate (beats per minute): 168 ADDITIONAL FINDINGS: None. PERCENTILE ESTIMATED WEIGHT (if calculated): 29 AVERAGE ULTRASOUND AGE (AUA) in weeks.days = 19.3 IMPRESSION: 1. Single intrauterine with AUA of 19.3 weeks.days 2. No significant sonographic abnormality. Signer Name: Horacio De La Vega MD Signed: 01/12/2021 8:51 PM Workstation Name: [id number]
--- NOTE | 2021-01-12 22:07 | Emergency Department Report ---
ED Female HPI - General Chief complaint: Abdominal Pain Stated complaint: BACK/ABD PAIN Source: patient Mode of arrival: Ambulatory Limitations: No Limitations - History of Present Illness Initial comments: Patient is a A0 20-year-old -Russian female who is approximately 19 weeks gestation presents to the ED with acute onset persistent severe pelvic pain with intractable nausea and vomiting for the last 2 days, worse in the last 12 hours. Patient also complains of a single episode of vaginal spotting 24 hours ago and which has since resolved. Patient states that the pain has been persistent and constant and that because he has been having nausea and vomiting had not been able to take anything by mouth. Patient denies vaginal bleeding, vaginal discharge, dysuria, urinary frequency and urgency, chest pain, shortness of breath, fever, chills, low back pain, cough, sore throat or headache. MD Complaint: vaginal bleeding, pelvic pain, other (Nausea and vomiting) -: Sudden, days(s) (2) Location: suprapubic Radiation: non-radiating Severity: moderate Severity scale (0 -10): 6 Quality: cramping, sharp Consistency: constant Improves with: none Worsens with: movement Are you Now?: Yes (19 weeks gestation) Associated Symptoms: denies other symptoms, abdominal pain, nausea/vomiting. denies: vaginal discharge, vaginal bleeding, fever/chills, headaches, loss of appetite, dysuria, hematuria, rash, seizure, shortness of breath, syncope, weakness, other - Related Data Sexually active: Yes : 1 Para: 0 A: 0 Previous Rx's Medication Instructions Recorded Last Taken Type Acetaminophen [Acetaminophen TAB] 650 mg PO Q6HR PRN #30 tablet 03/26/19 Unknown Rx Ondansetron [Zofran Odt] 4 mg PO Q8HR #20 tab.rapdis 03/26/19 Unknown Rx cephALEXin [Keflex] 500 mg PO Q12HR 10 Days #20 cap 03/26/19 Unknown Rx Ibuprofen [Motrin] 800 mg PO Q8HR PRN #25 tablet 03/27/19 Unknown Rx Acetaminophen/Codeine [Tylenol 1 tab PO Q6H PRN #12 tab 10/15/19 Unknown Rx /Codeine # 3 tab] Ibuprofen [Motrin 600 MG tab] 600 mg PO Q8H PRN #30 tab 11/01/19 Unknown Rx Nitrofurantoin [place]/M-Cryst 100 mg PO BID 7 Days #14 capsule 11/01/19 Unknown Rx [Macrobid CAP] Famotidine [Pepcid] 20 mg PO BID 3 Days #6 tablet 11/03/19 Unknown Rx predniSONE [Deltasone] 20 mg PO QDAY #3 tab 11/03/19 Unknown Rx Promethazine [Phenergan] 25 mg PO Q6HR PRN #10 tab 12/08/19 Unknown Rx Hyoscyamine Subl [Levsin Sl 0.125 0.125 mg SL Q4HR PRN #30 tablet 03/29/20 Unknown Rx TAB] bisacodyL [Dulcolax suppos] 10 mg UT QDAY PRN #5 supp.rect 03/29/20 Unknown Rx polyethylene glycoL 3350 [Miralax 17 gm PO BID PRN 10 Days #3 packet 03/29/20 Unknown Rx 3350] Ibuprofen [Motrin 800 MG tab] 800 mg PO Q8HR PRN #30 tablet 05/01/20 Unknown Rx methOCARBAMOL [Robaxin TAB] 500 mg PO BID #20 tab 05/01/20 Unknown Rx Ondansetron [Zofran ODT TAB] 4 mg PO Q8HR #12 tab.rapdis 05/03/20 Unknown Rx Acetaminophen [Tylenol] 500 mg PO Q6HR PRN #30 tablet 01/12/21 Unknown Rx Promethazine [Phenergan] 25 mg PO Q6HR PRN #30 tab 01/12/21 Unknown Rx Allergies Allergy/AdvReac Type Severity Reaction Status Date / Time No Known Allergies Allergy Verified 05/03/20 12:42 ED Review of Systems ROS: Stated complaint: BACK/ABD PAIN Other details as noted in HPI Constitutional: denies: chills, fever Eyes: denies: eye pain, eye discharge, vision change ENT: denies: ear pain, throat pain Respiratory: denies: cough, shortness of breath, wheezing Cardiovascular: denies: chest pain, palpitations Endocrine: no symptoms reported Gastrointestinal: abdominal pain (Suprapubic pain), nausea, vomiting. denies: diarrhea Genitourinary: abnormal menses (Vaginal spotting). denies: urgency, dysuria, discharge Musculoskeletal: denies: back pain, joint swelling, arthralgia Skin: denies: rash, lesions Neurological: denies: headache, weakness, paresthesias Psychiatric: denies: anxiety, depression Hematological/Lymphatic: denies: easy bleeding, easy bruising ED Past Medical Hx - Past Medical History Previous Medical History?: Yes Hx Psychiatric Treatment: Yes (anxiety attacks, depression) Hx Asthma: Yes - Surgical History Past Surgical History?: No - Social History Smoking Status: Never Smoker Substance Use Type: Marijuana - Medications Home Medications: Home Medications Medication Instructions Recorded Confirmed Last Taken Type Acetaminophen [Acetaminophen TAB] 650 mg PO Q6HR PRN #30 tablet 03/26/19 Unknown Rx Ondansetron [Zofran Odt] 4 mg PO Q8HR #20 tab.rapdis 03/26/19 Unknown Rx cephALEXin [Keflex] 500 mg PO Q12HR 10 Days #20 cap 03/26/19 Unknown Rx Ibuprofen [Motrin] 800 mg PO Q8HR PRN #25 tablet 03/27/19 Unknown Rx Acetaminophen/Codeine [Tylenol 1 tab PO Q6H PRN #12 tab 10/15/19 Unknown Rx /Codeine # 3 tab] Ibuprofen [Motrin 600 MG tab] 600 mg PO Q8H PRN #30 tab 11/01/19 Unknown Rx Nitrofurantoin [place]/M-Cryst 100 mg PO BID 7 Days #14 capsule 11/01/19 Unknown Rx [Macrobid CAP] Famotidine [Pepcid] 20 mg PO BID 3 Days #6 tablet 11/03/19 Unknown Rx predniSONE [Deltasone] 20 mg PO QDAY #3 tab 11/03/19 Unknown Rx Promethazine [Phenergan] 25 mg PO Q6HR PRN #10 tab 12/08/19 Unknown Rx Hyoscyamine Subl [Levsin Sl 0.125 0.125 mg SL Q4HR PRN #30 tablet 03/29/20 Unknown Rx TAB] bisacodyL [Dulcolax suppos] 10 mg UT QDAY PRN #5 supp.rect 03/29/20 Unknown Rx polyethylene glycoL 3350 [Miralax 17 gm PO BID PRN 10 Days #3 packet 03/29/20 Unknown Rx 3350] Ibuprofen [Motrin 800 MG tab] 800 mg PO Q8HR PRN #30 tablet 05/01/20 Unknown Rx methOCARBAMOL [Robaxin TAB] 500 mg PO BID #20 tab 05/01/20 Unknown Rx Ondansetron [Zofran ODT TAB] 4 mg PO Q8HR #12 tab.rapdis 05/03/20 Unknown Rx Acetaminophen [Tylenol] 500 mg PO Q6HR PRN #30 tablet 01/12/21 Unknown Rx Promethazine [Phenergan] 25 mg PO Q6HR PRN #30 tab 01/12/21 Unknown Rx ED Physical Exam - General Limitations: No Limitations ED Course Vital Signs 01/12/21 16:50 Temperature 98.4 F Pulse Rate 92 H Respiratory 16 Rate Blood Pressure 106/46 [Right] O2 Sat by Pulse 100 Oximetry ED Medical Decision Making - Lab Data Result diagrams: 01/12/21 19:40 01/12/21 19:40 - Radiology Data Radiology results: report reviewed, image reviewed [address] [address] Ultrasound Report Signed Patient: LESLIE PETTIT MR#: [id number] : 2000 Acct:[id number] Age/Sex: 20 / F ADM Date: 01/12/21 Loc: ED Attending Dr: Ordering Physician: ALISON UNDERWOOD Date of Service: 01/12/21 Procedure(s): US OB >= 14 weeks Fetus Accession Number(s): [id number] cc: ALISON UNDERWOOD ULTRASOUND OBSTETRIC COMPLETE INDICATION / CLINICAL INFORMATION: Abdominal pain , . Clinical Gestational Age (GA) in weeks.days: 19.6 TECHNIQUE: Transabdominal. COMPARISON: None available. FINDINGS: NUMBER: Single PRESENTATION: breech PLACENTA: Anterior and right lateral and free of the os. MATERNAL ADNEXA: No significant abnormality. AMNIOTIC FLUID VOLUME: normal AMNIOTIC FLUID INDEX (IMELDA) in cm (if measured): Not measured ANATOMY: organs (including the bladder, stomach, kidneys, heart, umbilical cord, diaphragm, cord insertion, spine and intracranial structures) are visualized and show no sign ificant abnormality with the following exception(s): None. MEASUREMENTS: - Biparietal Diameter = 4.4 cm = 19.1 weeks.days - Head Circumference = 16.9 cm = 19.4 weeks.days - Abdominal Circumference = 14.3 cm = 19.5 weeks.days - Femur Length = 3.1 cm = 19.3 weeks.days - Estimated Weight (in grams, if calculated): 299 - Heart Rate (beats per minute): 168 ADDITIONAL FINDINGS: None. PERCENTILE ESTIMATED WEIGHT (if calculated): 29 AVERAGE ULTRASOUND AGE (AUA) in weeks.days = 19.3 IMPRESSION: 1. Single intrauterine with AUA of 19.3 weeks.days 2. No significant sonographic abnormality. Signer Name: Horacio De La Vega MD Signed: 01/12/2021 8:51 PM Workstation Name: [id number] Transcribed By: GJ Dictated By: Horacio De La Vega MD Electronically Authenticated By: Horacio De La Vega MD Signed Date/Time: 01/12/212050 DD/ 45 TD/TT: Print - Medical Decision Making This is a A0 20-year-old -Russian female who is approximately 19 weeks gestation presents to the ED with acute onset persistent severe pelvic pain with intractable nausea and vomiting for the last 2 days, worse in the last 12 hours. Patient also complains of a single episode of vaginal spotting which occurred 24 hours ago and which has since resolved. Patient states that the pain has been persistent and constant and that because he has been having nausea and vomiting had not been able to take anything by mouth. In the ED, patient is alert and oriented x3 and is not in distress. Lab test results were reviewed and are all nonactionable. Pelvic ultrasound showed a single live IUP of approximately 19 weeks and 3 days with a heart rate of 168 bpm. Patient was treated for pain and also given antiemetics. On reevaluation, patient passed oral fluid challenge in the ED and the pain is well controlled medications. Patient was discharged home on prescription for antiemetics and was advised to take Tylenol as needed for pain, and advised to observe complete pelvic rest with no physical or strenuous activity or sexual activity and follow-up with [facility] physician as previously scheduled for the next day Wednesday, January 13, 2021. Patient was advised return to the ED immediately if symptoms get worse. - Differential Diagnosis UTI; ovarian cyst; subchorionic bleed; threatened miscarriage; kidney stone Critical care attestation.: If time is entered above; I have spent that time in minutes in the direct care of this critically ill patient, excluding procedure time. ED Disposition Clinical Impression: Threatened miscarriage, Vaginal bleeding during , Hyperemesis gravidarum Disposition: DC-01 TO HOME OR SELFCARE Is pt being admited?: No Does the pt Need Aspirin: No Condition: Stable Instructions: Abdominal Pain (ED), Threatened Miscarriage, [id number], Vaginal Bleeding During , Second Trimester, Hyperemesis Gravidarum, Morning Sickness, [id number] Additional Instructions: All lab test results were reviewed and are all nonactionable. The pelvic ultrasound showed a single live intrauterine of approximately 19 weeks and 3 days with a heart rate of 168 bpm. Therefore maintain a complete pelvic rest, take antiemetics as prescribed and take Tylenol as needed for pain. Return to the ED immediately if symptoms get worse, otherwise follow-up with your [facility] physician in 24 to 48 hours as previously scheduled for Wednesday, January 13, 2021. Prescriptions: Acetaminophen [Tylenol] 500 mg PO Q6HR PRN #30 tablet PRN Reason: Pain , Severe (7-10) Promethazine [Phenergan] 25 mg PO Q6HR PRN #30 tab PRN Reason: Nausea Referrals: HOLLAND ADAM MD [Staff Physician] - 3-5 Days Time of Disposition: 22:10 Print Language: SETSWANA
== END 2021-01-12 22:25 | disposition home or self-care (01) ==
LOC: ED 16:00
DX: O20.0 Threatened abortion (principal); O21.0 Mild hyperemesis gravidarum; Z3A.19 19 weeks gestation of pregnancy; F20.9 Schizophrenia, unspecified; F41.9 Anxiety disorder, unspecified; Z79.899 Other long term (current) drug therapy; O99.332 Smoking (tobacco) complicating pregnancy, second trimester
CPT/HCPCS: 36415; 76805; 80053; 81001; 81025; 84702; 85025; 86900; 86901; 99284; Q0169

== ENCOUNTER 2021-04-08 14:44 | Outpatient (CLI) | payer OTHER ==
[2021-04-08 15:20] VITALS: BP 103/69
[2021-04-08 16:00] LABS: Bacteria,Urine 1+ /HPF (Negative); Bilirubin,Urine NEG (Negative); Blood,Urine NEG (Negative); Color,Urine Yellow (Yellow); Mucus,Urine FEW /HPF; Protein,Urine <15 mg/dL mg/dL (Negative); Urobilinogen,Urine < 2.0 mg/dL (<2.0)
--- NOTE | 2021-04-08 18:13 | Ultrasound Report ---
Limited OB ultrasound INDICATION: Evaluate well-being FINDINGS: There is a single live intrauterine in cephalic position. IMELDA measures 8 cm. Plac enta is anterior left lateral position. Grade 1 placenta. No separation. heart rate 143 IMPRESSION: Normal single live intrauterine . OB ultrasound biophysical profile INDICATION: well-being FINDINGS: The biophysical profile measures 8 out of 8. heart rate 166. Signer Name: Armen Caal MD Signed: 04/08/2021 6:08 PM Workstation Name: [id number]
== END 2021-04-08 18:44 | disposition home or self-care (01) ==
LOC: TRG 14:44 → APU 14:45 → TRG 18:44
PROVIDERS: ATTEND Obstetrics & Gynecology
DX: Z34.93 Encounter for supervision of normal pregnancy, unspecified, third trimester (principal); Z3A.32 32 weeks gestation of pregnancy
CPT/HCPCS: 59025; 76815; 76819; 81001

== ENCOUNTER 2021-05-08 14:58 | Outpatient (CLI) | payer OTHER ==
[2021-05-08 15:40] VITALS: BP 104/67
--- NOTE | 2021-05-08 16:57 | Vascular Lab Report ---
DUPLEX DOPPLER LOWER EXTREMITY VEINS, LEFT INDICATION / CLINICAL INFORMATION: left leg pain and edema. TECHNIQUE: Duplex doppler imaging was performed through the veins of the left lower extremity using v enous compression and other maneuvers. COMPARISON: None available. FINDINGS: LEFT COMMON FEMORAL VEIN: Negative. LEFT FEMORAL VEIN: Negative. LEFT POPLITEAL VEIN: Negative. LEFT CALF VEINS: Negative. ADDITIONAL FINDINGS: None. IMPRESSION: 1. No sonographic evidence for DVT in the left lower extremity. Signer Name: Sabas Antonio MD Signed: 05/08/2021 4:52 PM Workstation Name: [id number]
--- NOTE | 2021-05-08 17:59 | Ultrasound Report ---
ULTRASOUND BIOPHYSICAL PROFILE INDICATION / CLINICAL INFORMATION: well being. COMPARISON: None available. FINDINGS: BREATHING MOVEMENT = 2 GROSS BODY MOVEMENT = 2 TONE = 2 QUALITATIVE AMNIOTIC FLUID VOLUME = 2 TOTAL BIOPHYSICAL SCORE = 05/11 HEART RATE (beats per minute): 143 IMPRESSION: 1. biophysical profile = 05/11 Signer Name: Fred Patino MD Signed: 05/08/2021 5:54 PM Workstation Name: [email or web address]
== END 2021-05-08 17:56 | disposition home or self-care (01) ==
LOC: TRG 14:58 → APU 14:59 → TRG 17:56
PROVIDERS: ATTEND Obstetrics & Gynecology
DX: Z34.93 Encounter for supervision of normal pregnancy, unspecified, third trimester (principal); Z3A.36 36 weeks gestation of pregnancy; Z3A.37 37 weeks gestation of pregnancy
CPT/HCPCS: 59025; 76819

== ENCOUNTER 2021-05-19 08:57 | Inpatient (IN) | payer OTHER ==
[2021-05-19] MEDS ORDERED: METHYLERGONOVINE MALEATE 0.2 MG/ML VIAL IM PRN (10:41)
[2021-05-19] MEDS ORDERED: OXYTOCIN 10 UNIT/1 ML INJ IM PRN (10:41)
[2021-05-19] MEDS ORDERED: TERBUTALINE 1 MG/1 ML INJ SUB-Q PRN (10:41)
[2021-05-19] MEDS ORDERED: miSOPROStol 200 MCG TAB PR PRN (10:41)
[2021-05-19] MEDS ORDERED: LOPERAMIDE 2 MG CAP PO PRN (10:41)
[2021-05-19] MEDS ORDERED: fentaNYL 100 MCG/2 ML INJ IV NR (10:47)
[2021-05-19] MEDS ORDERED: OXYTOCIN DRIP 30 UNITS/500 ML BAG IV SCH ×2 (11:00)
[2021-05-19] MEDS ORDERED: AMPICILLIN/NS 2 GM/100 ML 2 GM/100 ML BAG IV ONE ×3 (11:00→11:40)
[2021-05-19] MEDS ORDERED: LIDOCAINE (2%) 20 MG/1 ML VIAL 20 ML MDV INFILTRATI NR (11:30)
[2021-05-19] MEDS ORDERED: ePHEDrine SULFATE 50 MG/1 ML INJ IV PRN (11:30)
[2021-05-19] MEDS ORDERED: CARBOPROST TROMETHAMINE 250 MCG/1 ML INJ IM PRN (11:30)
[2021-05-19] MEDS: LACTATED RINGERS 1,000 ML IV SCH ×2 (11:44→20:25)
[2021-05-19 11:58] LABS: Hematocrit 32.6 % (30.3-42.9); Hemoglobin 10.9 gm/dl (10.1-14.3); Mean Corpuscular HGB Conc 33 % (30-34); Mean Corpuscular Volume 86 fl (79-97); Platelet Count 150 K/mm3 (140-440); Red Blood Count 3.78 M/mm3 (3.65-5.03); Red Cell Distribution Width 13.6 % (13.2-15.2)
[2021-05-19] MEDS: AMPICILLIN/NS 1 GM/50 ML 1 GM/50 ML BAG IV SCH (15:15)
--- NOTE | 2021-05-19 16:45 | Anesthesia Consultation ---
Anesthesia Consult and Med Hx Date of service: 05/19/21 - Pulmonary Exam CTA: No - Cardiac Exam Cardiac Exam: No Murmur - Pre-Operative Health Status ASA Pre-Surgery Classification: ASA2 Proposed Anesthetic Plan: Epidural - Pulmonary Hx Smoking: No Hx Asthma: Yes Hx Respiratory Symptoms: No SOB: No COPD: No Home Oxygen Therapy: No Hx Pneumonia: No Hx Sleep Apnea: No - Cardiovascular System Hx Hypertension: No Hx Coronary Artery Disease: No Hx Heart Attack/AMI: No Hx Angina: No Hx Percutaneous Transluminal Coronary Angioplasty (PTCA): No Hx Cardia Arrhythmia: No Hx Pacemaker: No Hx Internal Defibrillator: No Hx Valvular Heart Disease: No Hx Heart Murmur: No Hx Peripheral Vascular Disease: No - Central Nervous System Hx Neuromuscular Disorder: No Hx Seizures: No CVA: No Hx Back Pain: No Hx Psychiatric Problems: No - Gastrointestinal Hx Ulcer: No Hx Gastroesophageal Reflux Disease: No - Endocrine Hx Renal Disease: No Hx End Stage Renal Disease: No Hx Cirrhosis: No Hx Liver Disease: No Hx Insulin Dependent Diabetes: No Hx Non-Insulin Dependent Diabetes: No Hx Thyroid Disease: No Hx Hypothyroidism: No Hx Hyperthyroidism: No - Hematic Hx Anemia: No Hx Sickle Cell Disease: No - Other Systems Hx Alcohol Use: No Hx Substance Use: No Hx Cancer: No Hx Obesity: No
[2021-05-19] MEDS: BUTORPHANOL 2 MG/1 ML INJ IV PRN (20:25)
[2021-05-19] MEDS ORDERED: MINERAL OIL 30 ML ORAL LIQD PO PRN (22:00)
[2021-05-20] MEDS: BUTORPHANOL 2 MG/1 ML INJ IV PRN ×3 (00:31→08:40)
[2021-05-20] MEDS: LACTATED RINGERS 1,000 ML IV SCH (03:52)
--- NOTE | 2021-05-20 08:17 | History and Physical Report ---
History of Present Illness Date of examination: 05/19/21 Date of admission: 05/19/21 08:58 Chief complaint: SROM in mid morning 05/19/21. History of present illness: at 38+ wks. SROM. relatively unremarkable except ongoing swellingof left lower limb believed to be related to venous compression by a gravid uterus. Had a referral to [facility] for this. Past History Past Medical History: no pertinent history ( ) Past Surgical History: no surgical history Family/Genetic History: none Social history: no significant social history, single - Obstetrical History Expected Date of Delivery: 06/03/21 Actual Gestation: 38 Week(s) 0 Day(s) : 2 Para: 0 Hx # Term Pregnancies: 0 Number of Pregnancies: 0 Spontaneous Abortions: 1 Medications and Allergies Allergies Allergy/AdvReac Type Severity Reaction Status Date / Time No Known Allergies Allergy Verified 05/03/20 12:42 Home Medications Medication Instructions Recorded Confirmed Last Taken Type Acetaminophen [Acetaminophen TAB] 650 mg PO Q6HR PRN #30 tablet 03/26/19 Unknown Rx Ondansetron [Zofran Odt] 4 mg PO Q8HR #20 tab.rapdis 03/26/19 Unknown Rx cephALEXin [Keflex] 500 mg PO Q12HR 10 Days #20 cap 03/26/19 Unknown Rx Ibuprofen [Motrin] 800 mg PO Q8HR PRN #25 tablet 03/27/19 Unknown Rx Acetaminophen/Codeine [Tylenol 1 tab PO Q6H PRN #12 tab 10/15/19 Unknown Rx /Codeine # 3 tab] Ibuprofen [Motrin 600 MG tab] 600 mg PO Q8H PRN #30 tab 11/01/19 Unknown Rx Nitrofurantoin [place]/M-Cryst 100 mg PO BID 7 Days #14 capsule 11/01/19 Unknown Rx [Macrobid CAP] Famotidine [Pepcid] 20 mg PO BID 3 Days #6 tablet 11/03/19 Unknown Rx predniSONE [Deltasone] 20 mg PO QDAY #3 tab 11/03/19 Unknown Rx Promethazine [Phenergan] 25 mg PO Q6HR PRN #10 tab 12/08/19 Unknown Rx Hyoscyamine Subl [Levsin Sl 0.125 0.125 mg SL Q4HR PRN #30 tablet 03/29/20 Unknown Rx TAB] bisacodyL [Dulcolax suppos] 10 mg [place] QDAY PRN #5 supp.rect 03/29/20 Unknown Rx polyethylene glycoL 3350 [Miralax 17 gm PO BID PRN 10 Days #3 packet 03/29/20 Unknown Rx 3350] Ibuprofen [Motrin 800 MG tab] 800 mg PO Q8HR PRN #30 tablet 05/01/20 Unknown Rx methOCARBAMOL [Robaxin TAB] 500 mg PO BID #20 tab 05/01/20 Unknown Rx Ondansetron [Zofran ODT TAB] 4 mg PO Q8HR #12 tab.rapdis 05/03/20 Unknown Rx Acetaminophen [Tylenol] 500 mg PO Q6HR PRN #30 tablet 01/12/21 Unknown Rx Promethazine [Phenergan] 25 mg PO Q6HR PRN #30 tab 01/12/21 Unknown Rx Active Meds: Active Medications Butorphanol Tartrate (Butorphanol 2 Mg/1 Ml Inj) 2 mg IV Q2H PRN PRN Reason: Labor Pain Last Admin: 05/20/21 03:53 Dose: 2 mg Documented by: Carboprost Tromethamine (Carboprost Tromethamine 250 Mcg/1 Ml Inj) 250 mcg IM ONCE PRN PRN Reason: Uterine Bleeding Stop: 05/20/21 11:29 Ephedrine Sulfate (Ephedrine Sulfate 50 Mg/1 Ml Inj) 10 mg IV Q2M PRN PRN Reason: Hypotension Oxytocin/Sodium Chloride (Pitocin/Ns 30 Unit/500ml) 30 units in 500 mls @ 2 m ls/hr IV TITR CHASE; Protocol Last Admin: 05/19/21 11:51 Dose: 2 ml/hr, 2 mls/hr Documented by: Lactated Ringer's (Lactated Ringers) 1,000 mls @ 125 mls/hr IV DIRECT CHASE Last Admin: 05/20/21 03:52 Dose: 125 mls/hr Documented by: Oxytocin/Sodium Chloride (Pitocin/Ns 30 Unit/500ml) 30 units in 500 mls @ 40 mls/hr IV TITR CHASE; Protocol Loperamide HCl (Loperamide 2 Mg Cap) 2 mg PO ONCE PRN PRN Reason: give with Hemabate Stop: 05/20/21 23:00 Methylergonovine Maleate (Methylergonovine Maleate 0.2 Mg/Ml Vial) 0.2 mg IM ONCE PRN PRN Reason: Uterine Bleeding Stop: 05/20/21 10:40 Mineral Oil (Mineral Oil 30 Ml Oral Liqd) 30 ml PO QHS PRN PRN Reason: Constipation Misoprostol (Misoprostol 200 Mcg Tab) 800 mcg WI ONCE PRN PRN Reason: Uterine Bleeding Stop: 05/20/21 10:40 Oxytocin (Oxytocin 10 Unit/1 Ml Inj) 10 unit IM ONCE PRN PRN Reason: Uterine Bleeding Stop: 05/20/21 10:40 Terbutaline Sulfate (Terbutaline 1 Mg/1 Ml Inj) 0.25 mg SUB-Q ONCE PRN PRN Reason: Hyperstimulation/Hypertonicity Stop: 05/20/21 10:40 Review of Systems All systems: negative Cardiovascular: no chest pain Respiratory: no cough Gastrointestinal: abdominal pain Genitourinary: normal appearance, leakage of fluid, no vaginal bleeding Rectal Exam: deferred Integumentary: no rash, no jaundice - Vital Signs Vital signs: Vital Signs Temp Pulse Resp BP 98.1 F 93 H 16 104/72 05/19/21 09:43 05/19/21 09:43 05/19/21 09:43 05/19/21 09:43 Temp Pulse Resp BP Pulse Ox 98.7 F 85 16 112/75 98 05/19/21 18:25 05/20/21 08:08 05/19/21 15:16 05/20/21 05:17 05/20/21 08:08 - Physical Exam Breasts: Positive: deferred Lungs: Positive: Normal air movement Abdomen: Positive: normal appearance, soft, distention, normal bowel sounds Extremities: Positive: normal Deep Tendon Reflex Grade: Normal +2 - Obstetrical FHR: category 1 Results Result Diagrams: 05/19/21 11:00 Abnormal lab results 05/19/21 Range/Units 09:30 Membranes Rupture Positive A (Negative) All other labs normal. Assessment and Plan - Patient Problems (1) Full-term PROM with onset of labor within 24 hours of rupture Current Visit: Yes Status: Acute Plan to address problem: Admitted. For GBS prophylaxis. Augment contractions with pitocin.
--- NOTE | 2021-05-20 08:36 | Event Note ---
Date: 05/20/21 Comfortable. Mother and Fetus stable. Cx 4cm, 100%effaced, Vtx at 0+1 station, IUPC placed. Pelvis adequate.
[2021-05-20] MEDS ORDERED: AMPICILLIN/NS 1 GM/50 ML 1 GM/50 ML BAG IV SCH (12:00)
--- NOTE | 2021-05-20 12:17 | Progress Note ---
Labor Epidural - Labor Epidural Start Time: 11:49 Stop Time: 12:10 Performed by:: MIRTA BRITTON (Stormy Andrews [facility]) Procedure: Patient is requesting epidural for labor and pain. H&P, labs were reviewed. Patient IDed, H&P reviewed, all questions and concerns were answered, and consent was signed. Timeout was performed at bedside. Patient in sitting position. Sterile prep and drape was performed. 3ml of 1% lidocaine skin wheal at L[2]- L [3]. 18-gauge Tuohy epidural needle was advanced to loss of resistance without success. 3ml of 1% lidocaine skin wheal at L[3]- L [4]. 18- gauge Tuohy epidural needle was advanced to loss of resistance with air technique 7cm. Negative CSF negative blood. Epidural catheter advanced to [12] centimeters. [negative] Aspiration [negative] test dose. Sterile dressing applied. Patient tolerated procedure.
[2021-05-20] MEDS ORDERED: LACTATED RINGERS 250 ML IV SOLN IV ONE (12:37)
[2021-05-20] MEDS ORDERED: ONDANSETRON 4 MG/2 ML INJ IV PRN (12:37)
[2021-05-20] MEDS ORDERED: NalbUPHINE 10 MG/1 ML INJ IV PRN (12:37)
[2021-05-20] MEDS ORDERED: ePHEDrine SULFATE 50 MG/1 ML INJ IV PRN (12:37)
[2021-05-20] MEDS ORDERED: diphenhydrAMINE 50 MG/ML VIAL IV PRN (12:37)
[2021-05-20] MEDS ORDERED: NALOXONE 2 MG/2 ML INJ IV PRN (12:37)
[2021-05-20] MEDS: AMPICILLIN/NS 1 GM/50 ML 1 GM/50 ML BAG IV SCH (12:37)
[2021-05-20] MEDS ORDERED: fentaNYL-BUPIV 2 MCG/ML-0.125% 200 MCG/100 ML BAG EPIDURAL SCH (13:00)
[2021-05-20] MEDS ORDERED: FAMOTIDINE 20 MG/2 ML INJ IV NR (14:00)
[2021-05-20] MEDS ORDERED: ceFAZolin/STERILE WATER 2 GM/20 ML SYRINGE IV NR (14:00)
[2021-05-20] MEDS ORDERED: METOCLOPRAMIDE 10 MG/2 ML INJ IV NR (14:00)
[2021-05-20] MEDS ORDERED: MINERAL OIL 30 ML ORAL LIQD PO PRN (14:30)
[2021-05-20] MEDS ORDERED: ACETAMINOPHEN 325 MG TAB PO PRN ×2 (14:30→18:00)
[2021-05-20] MEDS ORDERED: BUTORPHANOL 2 MG/1 ML INJ IV PRN ×2 (14:30)
[2021-05-20] MEDS ORDERED: fentaNYL 100 MCG/2 ML INJ IV PRN (14:30)
[2021-05-20] MEDS ORDERED: BICITRA ORAL LIQD 30ML PO ONE (14:55)
[2021-05-20] MEDS ORDERED: OXYTOCIN DRIP 30 UNITS/500 ML BAG IV SCH ×2 (15:00→18:00)
[2021-05-20] MEDS ORDERED: LIDOCAINE 2%/EPINEPHRINE 1:200,000 VIAL (20 ML) INFILTRATI ONE (15:27)
[2021-05-20] MEDS ORDERED: LIDOCAINE (2%) 20 MG/1 ML VIAL 20 ML MDV INFILTRATI ONE (15:30)
[2021-05-20] MEDS ORDERED: LACTATED RINGERS 1,000 ML IV SCH (15:30)
[2021-05-20] MEDS ORDERED: PROMETHAZINE 25 MG RECT SUPP PR PRN (15:59)
[2021-05-20] MEDS ORDERED: NALOXONE 0.4 MG/1 ML INJ IV PRN ×2 (15:59→18:30)
[2021-05-20] MEDS ORDERED: HYDROmorphone 1 MG/1 ML INJ IV PRN (15:59)
[2021-05-20] MEDS ORDERED: PROMETHAZINE 25 MG TAB PO PRN (15:59)
--- NOTE | 2021-05-20 15:59 | Anesthesia Day of Surgery ---
Anesthesia Day of Surgery - Day of Surgery Patient Examined: Yes Patient H&P Reviewed: Yes Patient is NPO: Yes Beta Blockers: No Cardiac Clearance: No Pulmonary Clearance: No Octavio's Test: N/A
[2021-05-20] MEDS ORDERED: KETOROLAC 30 MG/1 ML INJ ONE (16:02)
[2021-05-20] MEDS ORDERED: ONDANSETRON 4 MG/2 ML INJ ONE (16:02)
[2021-05-20] MEDS ORDERED: BUPIVACAINE/PF (0.25%) 2.5 MG/ML 30 ML VIAL INFILTRATI ONE (16:05)
[2021-05-20] MEDS ORDERED: dexAMETHasone 20 MG/5 ML VIAL ONE (16:05)
[2021-05-20] MEDS ORDERED: LACTATED RINGERS 1,000 ML ONE (16:21)
[2021-05-20] MEDS ORDERED: .SODIUM CHLORIDE 0.9% IRRIG SOLN 3000 ML IR ONE (16:29)
[2021-05-20] MEDS ORDERED: WATER FOR IRRIG STERILE 1,500 ML BOTTLE IR ONE (16:29)
[2021-05-20] MEDS ORDERED: fentaNYL 100 MCG/2 ML INJ ONE (16:41)
[2021-05-20] MEDS ORDERED: propofoL 200 MG/20 ML VIAL IV ONE (16:44)
--- NOTE | 2021-05-20 17:48 | Operative Report ---
Operative Report Operative Report: Date of surgery: May 20, 2021 Preoperative diagnoses: Term premature rupture of of membranes, intole naomi of labor, failure to progress Postoperative diagnoses: The same. Operation: Lower segment transverse delivery Surgeon:Kana Lim MD Sales Planning Coordinator: Faisal Orozco CRNA Anesthesia: Epidural Estimated blood loss: 774 mL Complications: None Findings: There was a live baby girl in cephalic presentation, occiput posterior. weight 6 pounds 6 ounces, Apgars 8/9. Procedure in detail: The patient was taken to the operating room and given a spinal block. Patient was placed in the straight supine position and a Barnard catheter was inserted. The patient was prepped in the abdomen. The drapes were placed. A timeout was done. With the go ahead from the department head, a Pfannenstiel incision was made. This incision was carried across the subcutaneous layer to the fascia which was also divided transversely. The recti abdominis muscle flaps were stripped from the fascia using a combination of blunt and sharp dissections. The muscles were in the midline to gain access to the anterior parietal peritoneum which was divided after excluding any underlying viscera. The access to the peritoneal cavity was then widened by manual stretching. The bladder blade was applied. The utero vesicle peritoneal flap was divided transversely allowing the bladder to be displaced caudally. The uterine incision was placed in the lower segment transversely. The uterine incision was carried to the decidual layer. The uterine incision was extended on both sides using the bandage scissors. The amniotic sac was ruptured with clear fluid. The head was lifted out of the false maternal pelvis and delivered through the incision using fundal pressure. The airways were bulb suctioned beginning with the mouth. Continuing fundal pressure combined with traction on the mandibular processes of the jaw delivered the rest of the baby. The umbilical cord was double clamped and divided. The baby was carefully transferred to the pediatric team. The placenta was manually removed from the uterine cavity. The uterine cavity was explored and was empty of any placental remnants. The uterine incision was repaired in 2 layers with #1 Vicryl. The surgical line on the uterus was hemostatic. Blood and clots were cleared from the peritoneal cavity. The anterior parietal peritoneum was repaired with #1 Vicryl. The fascia was repaired with #1 Vicryl. The subcutaneous layer was made hemostatic using the Bovie before the skin was closed subcuticularly with 4-0 Vicryl. There were no complications. The estimated blood loss was 774 mL. All sponges and instrument counts were correct. Patient was safely transferred to the recovery room.
[2021-05-20] MEDS ORDERED: MORPHINE 4 MG/1 ML INJ IV PRN (18:00)
[2021-05-20] MEDS ORDERED: WITCH HAZEL/ GLYCERIN PAD TP PRN (18:00)
[2021-05-20] MEDS ORDERED: KETOROLAC 30 MG/1 ML INJ IV PRN (18:30)
[2021-05-20] MEDS ORDERED: LANOLIN/ZINC/DIMETHICONE (LANSINOH) 7 GM TP PRN (18:30)
[2021-05-20] MEDS: ceFAZolin/NS 1 GM/50 ML 1 GM/50 ML BAG IV SCH (21:43)
[2021-05-20] MEDS: KETOROLAC 30 MG/1 ML INJ IV PRN (22:28)
[2021-05-21] MEDS: MORPHINE 2 MG/1 ML INJ IV PRN ×2 (00:08→05:41)
[2021-05-21 00:53] LABS: Hemoglobin 10.3 gm/dl (10.1-14.3)
[2021-05-21] MEDS: ceFAZolin/NS 1 GM/50 ML 1 GM/50 ML BAG IV SCH (01:33)
[2021-05-21] MEDS: HYDROcodone/ACETAMINOPHEN 5-325 MG TAB PO PRN ×4 (01:38→22:54)
[2021-05-21] MEDS ORDERED: D5W/LACTATED RINGERS 1,000 ML IV SCH (06:00)
[2021-05-21] MEDS: FERROUS SULFATE 325 MG TAB PO SCH (09:08)
--- NOTE | 2021-05-21 10:17 | Post Anesthesia Evaluation ---
- Post Anesthesia Evaluation Patient Participated: Yes Airway Patent: Yes Stable Respiratory Function: Yes Nausea/Vomiting: No Temp > 96.8F: Yes Pain Manageable: Yes Adequeate Hydration: Yes Anesthesia Complications: No Block Receding Appropriately: Yes Patient on Ventilator: No
[2021-05-21] MEDS: KETOROLAC 30 MG/1 ML INJ IV PRN (11:58)
--- NOTE | 2021-05-21 14:33 | Progress Note ---
Assessment and Plan - Patient Problems (1) Full-term PROM with onset of labor within 24 hours of rupture Current Visit: Yes Status: Acute (2) Post-operative state Current Visit: Yes Status: Acute Plan to address problem: Continue observation Subjective - Subjective Date of service: 05/21/21 Principal diagnosis: by day 1 Interval history: at 38+ wks. SROM. relatively unremarkable except ongoing swellingof left lower limb believed to be related to venous compression by a gravid uterus. Had a referral to [facility] for this. Patient reports: appetite normal, voiding normally, pain well controlled, ambulating normally [place]: doing well Objective - Vital Signs Latest vital signs: Vital Signs Temp Pulse Resp BP BP Pulse Ox Pulse Ox 05/21/21 13:18 98.4 F 109 H 18 103/58 97 05/21/21 09:08 16 05/21/21 08:14 100 05/21/21 08:10 98.2 F 82 20 109/63 95 05/21/21 06:11 18 05/21/21 05:41 18 05/21/21 04:30 98.4 F 74 18 102/78 05/21/21 02:38 18 05/21/21 01:38 18 05/21/21 00:50 97.8 F 79 18 100/65 96 05/21/21 00:38 18 05/21/21 00:08 18 05/20/21 22:58 18 05/20/21 22:28 20 05/20/21 20:00 97.9 F 69 16 111/79 98 98 05/20/21 18:35 72 11 L 113/77 97 05/20/21 18:34 98.1 F 05/20/21 18:20 71 11 L 115/75 97 05/20/21 18:05 97.8 F 74 13 115/76 96 05/20/21 17:55 75 13 113/80 97 05/20/21 17:48 98 F 05/20/21 17:45 78 17 126/44 98 05/20/21 17:40 80 17 128/72 98 05/20/21 17:35 70 17 122/72 98 05/20/21 17:30 71 12 106/63 97 05/20/21 17:28 98.1 F 05/20/21 15:46 88 100 05/20/21 15:41 85 96 05/20/21 15:36 86 98 05/20/21 15:33 82 108/63 05/20/21 15:31 86 97 05/20/21 15:26 87 96 05/20/21 15:21 89 99 05/20/21 15:17 87 106/67 05/20/21 15:16 88 97 05/20/21 15:11 88 97 05/20/21 15:06 88 97 05/20/21 15:02 88 102/58 05/20/21 15:01 88 98 05/20/21 14:56 84 97 05/20/21 14:51 86 99 05/20/21 14:47 79 106/62 05/20/21 14:46 82 98 05/20/21 14:43 98.1 F 05/20/21 14:41 84 99 05/20/21 14:36 82 100 05/20/21 14:32 75 105/62 05/20/21 14:31 79 100 Intake and Output 05/20/21 05/21/21 05/21/21 23:59 07:59 15:59 Intake Total 950 560 Output Total 200 2500 Balance 750 -1940 Intake: IV 950 ANCEF/NS 1 GM/50 ML 1 gm 50 In 50 ml @ 100 mls/hr IV Q8H [facility] Rx#:[id number] Oral 200 Intake, Free Water 360 Output: Urine 200 2500 Indwelling Catheter 2500 Other: Total, Intake Amount 200 Total, Output Amount 800 Estimated Blood Loss 674 - Exam Lungs: Present: Normal air movement Abdomen: Present: normal appearance, soft, normal bowel sounds Uterus: Present: normal, firm Extremities: Present: normal. Absent: tenderness Deep Tendon Reflex Grade: Normal +2 Incision: Present: normal, dry, intact
[2021-05-21] MEDS: IBUPROFEN 600 MG TAB PO PRN (18:24)
[2021-05-21] MEDS ORDERED: MAGNESIUM HYDROXIDE (MOM) ORAL LIQD UDC PO PRN (22:21)
[2021-05-21] MEDS: SIMETHICONE 80 MG CHEW TAB PO PRN (22:27)
[2021-05-22] MEDS: HYDROcodone/ACETAMINOPHEN 5-325 MG TAB PO PRN (04:56)
[2021-05-22] MEDS: SIMETHICONE 80 MG CHEW TAB PO PRN (04:59)
[2021-05-22] MEDS: IBUPROFEN 600 MG TAB PO PRN (08:45)
[2021-05-22] MEDS: FERROUS SULFATE 325 MG TAB PO SCH (09:45)
--- NOTE | 2021-05-22 11:03 | Progress Note ---
Assessment and Plan - Patient Problems (1) Full-term PROM with onset of labor within 24 hours of rupture Current Visit: Yes Status: Acute (2) Post-operative state Current Visit: Yes Status: Acute Plan to address problem: Ready for home. Subjective - Subjective Date of service: 05/22/21 Principal diagnosis: by day 2 Interval history: at 38+ wks. SROM. relatively unremarkable except ongoing swellingof left lower limb believed to be related to venous compression by a gravid uterus. Had a referral to [facility] for this. Patient reports: appetite normal, voiding normally, dizzy ambulation, pain well controlled, ambulating normally : doing well Objective - Vital Signs Latest vital signs: Vital Signs Temp Pulse Resp BP BP Pulse Ox Pulse Ox 05/22/21 08:45 16 05/22/21 07:59 98.3 F 79 16 110/67 98 05/22/21 04:56 18 05/22/21 00:26 98.6 F 90 18 105/62 98 05/21/21 22:54 18 05/21/21 20:43 98.9 F 94 H 16 117/76 100 05/21/21 17:40 98.5 F 105 H 20 99/60 100 05/21/21 14:33 16 05/21/21 13:18 98.4 F 109 H 18 103/58 97 Intake and Output 05/21/21 05/22/21 05/22/21 23:59 07:59 15:59 Intake Total 300 120 Balance 300 120 Intake: Oral 120 Intake, Free Water 300 Other: Total, Intake Amount 120 # Voids Void 1 1 1 - Exam Abdomen: Present: normal appearance, soft, normal bowel sounds Uterus: Present: normal, firm Extremities: Present: normal Deep Tendon Reflex Grade: Normal +2 Incision: Present: normal, dry, intact
--- NOTE | 2021-05-22 11:06 | Discharge Summary ---
Providers - Providers Date of Admission: 05/20/21 14:31 Date of discharge: 05/22/21 Attending physician: DAMION JACKSON MD Primary care physician: DAMION JACKSON MD Hospitalization Reason for admission: rupture of membranes Delivery: Procedure: section Episiotomy: none Laceration: none Incision: normal, dry, intact Other procedures: none complications: none Condition at discharge: Good Disposition: 01 HOME / SELF CARE / HOMELESS - Discharge Diagnoses (1) Full-term PROM with onset of labor within 24 hours of rupture Status: Acute (2) Post-operative state Status: Acute Plan - Provider Discharge Summary Activity: routine, no sex for 6 weeks, no heavy lifting 4 weeks, no strenuous exercise Diet: routine Instructions: routine Additional instructions: [] Smoking cessation referral if applicable(refer to patient education folder for contact #) [] Refer to [facility] Booklet Call your doctor immediately for: * Fever > 100.5 * Heavy vaginal bleeding ( >1 pad per hour) * Severe persistent headache * Shortness of breath * Reddened, hot, painful area to leg or breast * Drainage or odor from incision. * Keep incision clean and dry at all times and follow doctor's instructions regarding bathing/showering - Follow up plan Follow up: DAMION JACKSON MD [Primary Care Provider] - 7 Days
[2021-05-22 12:07] VITALS: BP 113/77
== END 2021-05-22 13:15 | disposition home or self-care (01) | DRG 766 ==
LOC: TRG 08:57 → LD 08:58 → APU 08:58 → TRG 09:49 → LD 11:28 → OBSVTOIN 05-20 14:31 → OB 05-20 20:05
PROVIDERS: ADMIT Obstetrics & Gynecology; ATTEND Obstetrics & Gynecology
PROC: 10D00Z1 Extraction of Products of Conception, Low, Open Approach (ICD-10-PCS; principal; 2021-05-20)
PROC: 10H07YZ Insertion of Other Device into Products of Conception, Via Natural or Artificial Opening (ICD-10-PCS; 2021-05-20)
DX: O42.02 Full-term premature rupture of membranes, onset of labor within 24 hours of rupture (principal); Z3A.38 38 weeks gestation of pregnancy; Z37.0 Single live birth; O99.52 Diseases of the respiratory system complicating childbirth; J45.909 Unspecified asthma, uncomplicated; O66.40 Failed trial of labor, unspecified; Z20.822 Contact with and (suspected) exposure to COVID-19
CPT/HCPCS: 36415; 84112; 85014; 85018; 85027; 86592; 86850; 86900; 86901; 88307; 99211; G0378; A4217; G0463; J0290; J0595; J0690; J1100; J1885; J2270; J2405; J2590; J2704; J2765; J3010; J7120; J7121; U0003